=== PATIENT | male | born 1965 | race American Indian/Alaskan Native ===

== ENCOUNTER 2020-10-09 00:50 | Inpatient (IN) | payer MEDICARE, OTHER ==
--- NOTE | 2020-10-09 01:32 | EDM.PDOC ---
ED HPI GENERAL MEDICAL PROBLEM - General Chief Complaint: Respiratory Problem Stated Complaint: [facility] Time Seen by Provider: 10/09/20 00:59 Source of Information: Reports: Patient, EMS History Limitations: Reports: No Limitations - History of Present Illness INITIAL COMMENTS - FREE TEXT/NARRATIVE: This is a 55-year-old male. Onset of Covid type symptoms 3 days ago. Apparently on his indicated to him that she could not taste or smell anything and now as the day he began having increased coughing and shortness of breath. It is progressively gotten worse until this morning when he tried to get to the bathroom he had to get his to help him because he was so weak. He was also extremely short of breath. They called the ambulance and when they arrived his pulse ox on room air was 60%. They put him on a nonrebreather at 15 L and his pulse ox is in the mid 80s. He is obviously short of breath when I go into the room and he speaks in short sentences because they are interrupted by his breathing. He also has a persistent cough. He states that over the last few days has been running a low-grade fever he has been very weak he has had congestion mild runny nose and a mild sore throat headaches in the morning and myalgias but no nausea vomiting or diarrhea. History includes cardiac bypass surgery in 2006 it was a triple bypass. He is also a independent diabetic with peripheral vascular disease and peripheral neuropathy. He also has hypertension. About 2 weeks ago he was discovered to have some claudication and he went through surgery to clean out his arteries in his legs by Dr. Myers in [place] and then he had an amputation of his left great toe at that same time. He did get a slight infection in his legs after the surgery but that seems to have cleared up if I understand what he is telling me. He denies any history of congestive heart failure or fluid collecting in his lungs. Treatments LEAD DENTAL ASSISTANT: Reports: IV/IO, Oxygen - Related Data Allergies Allergy/AdvReac Type Severity Reaction Status Date / Time Sulfa (Sulfonamide Allergy Severe Shaking Verified 10/09/20 00:58 Antibiotics) Home Meds: Home Meds Aspirin [Aspirin EC] 325 mg PO DAILY 10/09/20 [History] Baclofen 10 mg PO TID 10/09/20 [History] Docusate Sodium 100 mg PO BID 10/09/20 [History] Gabapentin [Neurontin] 600 mg PO BEDTIME 10/09/20 [History] Gabapentin [Neurontin] 600 mg PO BID 10/09/20 [History] Ibuprofen 800 mg PO Q8H PRN 10/09/20 [History] Insulin Aspart [NovoLOG] 1 unit SQ WITHMEALSANDBED 10/09/20 [History] Insulin Detemir [Levemir] 30 unit SUBCUT BEDTIME 10/09/20 [History] Losartan [Cozaar] 100 mg PO DAILY 10/09/20 [History] Magnesium Oxide 400 mg PO DAILY 10/09/20 [History] Metoprolol Tartrate 50 mg PO BID 10/09/20 [History] amLODIPine [Norvasc] 5 mg PO DAILY 10/09/20 [History] atorvaSTATin [Lipitor] 80 mg PO BEDTIME 10/09/20 [History] rOPINIRole [Requip] 1 mg PO BEDTIME 10/09/20 [History] Past Medical History Cardiovascular History: Reports: High Cholesterol, Hypertension, [place] Genitourinary History: Reports: Diabetic Nephropathy Endocrine/Metabolic History: Reports: Diabetes, Type II Social & Family History - Tobacco Use Tobacco Use Status *Q: Former Tobacco User Used Tobacco, but Quit: Yes Month/Year Tobacco Last Used: 2004 - Recreational Drug Use Recreational Drug Use: No ED ROS GENERAL - Review of Systems Review Of Systems: See Below Constitutional: Reports: Fever, Chills, Weakness, Fatigue HEENT: Reports: Rhinitis, Throat Pain Respiratory: Reports: Shortness of Breath, Wheezing, Cough, Sputum Cardiovascular: Denies: Chest Pain Endocrine: Reports: No Symptoms GI/Abdominal: Denies: Abdominal Pain, Diarrhea, Nausea, Vomiting : Reports: No Symptoms Musculoskeletal: Reports: Other (Myalgias during these last 3 days) Skin: Reports: No Symptoms Neurological: Reports: No Symptoms Psychiatric: Reports: Anxiety Hematologic/Lymphatic: Reports: No Symptoms ED EXAM, GENERAL - Physical Exam Exam: See Below Exam Limited By: Other (Despite him being short of breath he is able to speak and give a decent history) General Appearance: Alert, WD/WN, Anxious, Moderate Distress Eye Exam: Bilateral Eye: Normal Inspection Ears: Normal External Exam, Normal Canal, Normal TMs Nose: Normal Inspection. No: Nasal Drainage Throat/Mouth: Normal Oropharynx, Normal Voice, No Airway Compromise, Other (His mucous membranes are very tacky and dry) Head: Normocephalic Neck: Supple Respiratory/Chest: Crackles, Accessory Muscle Use, Other (Listen to his lung blankenship the upper blankenship have Velcro sounds with expiration but the lower blankneship appear to have Velcro sounds with both inspiration and expiration and he has decreased breath sounds in the bases. He is tachypneic he does have a mild prolonged expiratory phase. His anterior chest has a bypass surgery scar.) Cardiovascular: Regular Rate, Rhythm, No Murmur GI/Abdominal: Soft, Other (All sounds are quiet.) Back Exam: Full Range of Motion Extremities: Normal Range of Motion, Pedal Edema, Other (His lower extremities especially the lower legs appear to have some early brawny skin changes though there is no significant edema. He does have 2 areas on his right lower extremity that have some mild weeping though the edema is only about 1+. On the left lower extremity he does not have any open wounds but his foot is wrapped due to the amputation of his left great toe. I did not remove the wrapping at this time because I see no drainage on the bandages.) Neurological: Alert, Oriented Psychiatric: Anxious Skin Exam: Warm, Dry #1 Interpretation EKG Date: 10/09/20 Time: 01:45 EKG Interpretation Comments: EKG shows a normal sinus rhythm rate of 93, there are no acute ST elevation or T wave changes, there is no acute ischemia noted. Course - Vital Signs Last Recorded V/S: Last Vital Signs Temp 98.1 F 10/09/20 00:54 Pulse 97 10/09/20 00:54 Resp 36 H 10/09/20 00:54 BP 149/68 H 10/09/20 00:54 Pulse Ox 79 L 10/09/20 00:54 - Orders/Labs/Meds Orders: Active Orders 24 hr Category Date Time Status EKG 12 Lead [EKG Documentation Completion] [RC] STAT Care 10/09/20 01:09 Active CXR [Chest 1V Frontal] [CR] Stat Exams 10/09/20 01:08 Taken cefTRIAXone [Rocephin] 2 gm Med 10/09/20 02:52 Ordered Sodium Chloride 0.9% [Normal Saline] 100 ml IV ONETIME Medication Orders Ceftriaxone Sodium 2 gm/ (Sodium Chloride) 100 mls @ 200 mls/hr IV ONETIME ONE Stop: 12/20/20 03:21 Labs: Laboratory Tests 10/09/20 10/09/20 10/09/20 Range/Units 01:15 01:15 01:29 WBC 9.21 H (4.23-9.07) K/mm3 RBC 4.22 L (4.63-6.08) M/mm3 Hgb 10.7 L (13.7-17.5) gm/dl Hct 32.2 L (40.1-51.0) % MCV 76.3 L (79.0-92.2) fl MCH 25.4 L (25.7-32.2) pg MCHC 33.2 (32.2-35.5) g/dl RDW Std Deviation 40.3 (35.1-43.9) fL Plt Count 120 L (163-337) K/mm3 MPV 11.7 (9.4-12.3) fl Neut % (Auto) 89.1 H (34.0-67.9) % Lymph % (Auto) 6.7 L (21.8-53.1) % [facility] % (Auto) 3.7 L (5.3-12.2) % Eos % (Auto) 0 L (0.8-7.0) Baso % (Auto) 0.1 (0.1-1.2) % Neut # (Auto) 8.20 H (1.78-5.38) K/mm3 Lymph # (Auto) 0.62 L (1.32-3.57) K/mm3 [facility] # (Auto) 0.34 (0.30-0.82) K/mm3 Eos # (Auto) 0.00 L (0.04-0.54) K/mm3 Baso # (Auto) 0.01 (0.01-0.08) K/mm3 Manual Slide Review Abnormal smear D-Dimer, Quantitative (0.19-0.50) mg/L Puncture Site Lt radial ABG pH 7.35 (7.35-7.45) ABG pCO2 23.8 L (35.0-45.0) mmHg ABG pO2 50.0 L (80.0-100.0) mmHg ABG HCO3 12.8 L (22.0-26.0) meq/L ABG O2 Saturation 80.5 L (96.0-97.0) % ABG Base Excess -11.1 L (-2-2.0) Kali Test Positive O2 Delivery Device Nrb Oxygen Flow Rate 15.0 Sodium (136-145) mEq/L Potassium (3.5-5.1) mEq/L Chloride (98-107) mEq/L Carbon Dioxide (21-32) mEq/L Anion Gap (5-15) BUN (7-18) mg/dL Creatinine (0.7-1.3) mg/dL Est Cr Clr Drug Dosing mL/min Estimated GFR (MDRD) (>60) mL/min BUN/Creatinine Ratio (14-18) Glucose (74-106) mg/dL Lactic Acid (0.4-2.0) mmol/L Calcium (8.5-10.1) mg/dL Magnesium (1.8-2.4) mg/dl Ferritin (26-388) ng/ml Total Bilirubin (0.2-1.0) mg/dL AST (15-37) U/L ALT (16-63) U/L Alkaline Phosphatase (46-116) U/L Lactate Dehydrogenase (85-227) U/L Troponin I (0.00-0.056) ng/mL C-Reactive Protein (<1.0) mg/dL NT-Pro-B Natriuret Pep (0-125) pg/mL Total Protein (6.4-8.2) g/dl Albumin (3.4-5.0) g/dl Globulin gm/dL Albumin/Globulin Ratio (1-2) SARS-CoV-2 RNA (PERRI) Positive H (NEGATIVE) 10/09/20 10/09/20 10/09/20 Range/Units 01:29 01:29 01:29 WBC (4.23-9.07) K/mm3 RBC (4.63-6.08) M/mm3 Hgb (13.7-17.5) gm/dl Hct (40.1-51.0) % MCV (79.0-92.2) fl MCH (25.7-32.2) pg MCHC (32.2-35.5) g/dl RDW Std Deviation (35.1-43.9) fL Plt Count (163-337) K/mm3 MPV (9.4-12.3) fl Neut % (Auto) (34.0-67.9) % Lymph % (Auto) (21.8-53.1) % [facility] % (Auto) (5.3-12.2) % Eos % (Auto) (0.8-7.0) Baso % (Auto) (0.1-1.2) % Neut # (Auto) (1.78-5.38) K/mm3 Lymph # (Auto) (1.32-3.57) K/mm3 [facility] # (Auto) (0.30-0.82) K/mm3 Eos # (Auto) (0.04-0.54) K/mm3 Baso # (Auto) (0.01-0.08) K/mm3 Manual Slide Review D-Dimer, Quantitative (0.19-0.50) mg/L Puncture Site ABG pH (7.35-7.45) ABG pCO2 (35.0-45.0) mmHg ABG pO2 (80.0-100.0) mmHg ABG HCO3 (22.0-26.0) meq/L ABG O2 Saturation (96.0-97.0) % ABG Base Excess (-2-2.0) Kali Test O2 Delivery Device Oxygen Flow Rate Sodium 129 L (136-145) mEq/L Potassium 3.8 (3.5-5.1) mEq/L Chloride 97 L (98-107) mEq/L Carbon Dioxide 15 L (21-32) mEq/L Anion Gap 20.8 H (5-15) BUN 37 H (7-18) mg/dL Creatinine 2.3 H (0.7-1.3) mg/dL Est Cr Clr Drug Dosing 38.35 mL/min Estimated GFR (MDRD) 30 (>60) mL/min BUN/Creatinine Ratio 16.1 (14-18) Glucose 159 H (74-106) mg/dL Lactic Acid (0.4-2.0) mmol/L Calcium 7.9 L (8.5-10.1) mg/dL Magnesium 1.6 L (1.8-2.4) mg/dl Ferritin 912 H (26-388) ng/ml Total Bilirubin 0.4 (0.2-1.0) mg/dL AST 42 H (15-37) U/L ALT 59 (16-63) U/L Alkaline Phosphatase 95 (46-116) U/L Lactate Dehydrogenase 495 H (85-227) U/L Troponin I 0.035 (0.00-0.056) ng/mL C-Reactive Protein 19.1 H* (<1.0) mg/dL NT-Pro-B Natriuret Pep 1123 H (0-125) pg/mL Total Protein 7.7 (6.4-8.2) g/dl Albumin 2.4 L (3.4-5.0) g/dl Globulin 5.3 gm/dL Albumin/Globulin Ratio 0.5 L (1-2) SARS-CoV-2 RNA (PERRI) (NEGATIVE) 10/09/20 10/09/20 Range/Units 01:29 01:29 WBC (4.23-9.07) K/mm3 RBC (4.63-6.08) M/mm3 Hgb (13.7-17.5) gm/dl Hct (40.1-51.0) % MCV (79.0-92.2) fl MCH (25.7-32.2) pg MCHC (32.2-35.5) g/dl RDW Std Deviation (35.1-43.9) fL Plt Count (163-337) K/mm3 MPV (9.4-12.3) fl Neut % (Auto) (34.0-67.9) % Lymph % (Auto) (21.8-53.1) % [facility] % (Auto) (5.3-12.2) % Eos % (Auto) (0.8-7.0) Baso % (Auto) (0.1-1.2) % Neut # (Auto) (1.78-5.38) K/mm3 Lymph # (Auto) (1.32-3.57) K/mm3 [facility] # (Auto) (0.30-0.82) K/mm3 Eos # (Auto) (0.04-0.54) K/mm3 Baso # (Auto) (0.01-0.08) K/mm3 Manual Slide Review D-Dimer, Quantitative 1.85 H (0.19-0.50) mg/L Puncture Site ABG pH (7.35-7.45) ABG pCO2 (35.0-45.0) mmHg ABG pO2 (80.0-100.0) mmHg ABG HCO3 (22.0-26.0) meq/L ABG O2 Saturation (96.0-97.0) % ABG Base Excess (-2-2.0) Kali Test O2 Delivery Device Oxygen Flow Rate Sodium (136-145) mEq/L Potassium (3.5-5.1) mEq/L Chloride (98-107) mEq/L Carbon Dioxide (21-32) mEq/L Anion Gap (5-15) BUN (7-18) mg/dL Creatinine (0.7-1.3) mg/dL Est Cr Clr Drug Dosing mL/min Estimated GFR (MDRD) (>60) mL/min BUN/Creatinine Ratio (14-18) Glucose (74-106) mg/dL Lactic Acid 2.2 H* (0.4-2.0) mmol/L Calcium (8.5-10.1) mg/dL Magnesium (1.8-2.4) mg/dl Ferritin (26-388) ng/ml Total Bilirubin (0.2-1.0) mg/dL AST (15-37) U/L ALT (16-63) U/L Alkaline Phosphatase (46-116) U/L Lactate Dehydrogenase (85-227) U/L Troponin I (0.00-0.056) ng/mL C-Reactive Protein (<1.0) mg/dL NT-Pro-B Natriuret Pep (0-125) pg/mL Total Protein (6.4-8.2) g/dl Albumin (3.4-5.0) g/dl Globulin gm/dL Albumin/Globulin Ratio (1-2) SARS-CoV-2 RNA (PERRI) (NEGATIVE) Meds: Medications Generic Name Dose Route Start Last Admin Trade Name Freq PRN Reason Stop Dose Admin Ceftriaxone Sodium 2 gm/ 100 mls @ 200 mls/hr 10/09/20 02:52 Sodium Chloride IV 10/09/20 03:21 ONETIME ONE Discontinued Medications Generic Name Dose Route Start Last Admin Trade Name Freq PRN Reason Stop Dose Admin Dexamethasone 6 mg 10/09/20 02:52 Decadron IVPUSH 10/09/20 02:53 ONETIME ONE - Radiology Interpretation Free Text/Narrative:: Chest x-ray shows marked infiltrates in both lung blankenship fluffy appearance suggesting Covid lung - Re-Assessments/Exams Free Text/Narrative Re-Assessment/Exam: 10/09/20 02:56 The patient regarding his test results and his Covid positive status and his lung status. He is going to be admitted to the ICU for further evaluation. I did speak to Dr. Knowles regarding the patient and he agrees to accept the patient for admission for further evaluation and treatment. Departure - Departure Time of Disposition: 02:57 Disposition: Admitted As Inpatient 68 Condition: Serious Clinical Impression: Lab test positive for detection of COVID-19 virus, Pneumonia due to COVID-19 virus, Hypoxemia, Microcytic hypochromic anemia, Renal insufficiency, Dehydration, Hyponatremia, Thrombocytopenia, Hypocalcemia, Hypomagnesemia, Elevated C-reactive protein, Insulin dependent diabetes mellitus, Peripheral vascular disease due to secondary diabetes Coronary artery disease Qualifiers: Coronary Disease-Associated Artery/Lesion type: unspecified vessel or lesion type [place] vs. transplanted heart: [place] heart Associated angina: angina presence unspecified Qualified Code(s): I25.10 - Atherosclerotic heart disease of [place] coronary artery without angina pectoris - Discharge Information Forms: ED Department Discharge Sepsis Event Note (ED) - Evaluation Sepsis Screening Result: No Definite Risk - Focused Exam Vital Signs: Vital Signs Temp Pulse Resp BP Pulse Ox 10/09/20 00:54 98.1 F 97 36 H 149/68 H 79 L ED Communication - ED Communication Date/Time Date: 10/09/20 Time Called: 02:57 - Discussed Case With (1) Discussed Case With (1): Admitting Provider Person/s Notified (1): Sofia Knowles (He accepts the patient for admission for further evaluation and treatment) - My Orders Last 24 Hours: My Active Orders 10/09/20 01:08 CXR [Chest 1V Frontal] [CR] Stat 10/09/20 01:09 EKG 12 Lead [EKG Documentation Completion] [RC] STAT 10/09/20 02:52 cefTRIAXone [Rocephin] 2 gm Sodium Chloride 0.9% [Normal Saline] 100 ml IV ONETIME - Assessment/Plan Last 24 Hours: My Active Orders 10/09/20 01:08 CXR [Chest 1V Frontal] [CR] Stat 10/09/20 01:09 EKG 12 Lead [EKG Documentation Completion] [RC] STAT 10/09/20 02:52 cefTRIAXone [Rocephin] 2 gm Sodium Chloride 0.9% [Normal Saline] 100 ml IV ONETIME
[2020-10-09] MEDS ORDERED: cefTRIAXone 2 GM in Sodium Chloride 0.9% 100 ML IV ONE (02:52)
[2020-10-09] MEDS ORDERED: Dexamethasone 4 MG/ML SDV IVPUSH ONE (02:52)
[2020-10-09] MEDS ORDERED: REMDESIVIR 200 MG in Sodium Chloride 0.9% 250 ML IV ONE (05:14)
[2020-10-09] MEDS: Azithromycin 500 MG in Sodium Chloride 0.9% 250 ML IV SCH (05:45)
--- NOTE | 2020-10-09 07:18 | PCM.HP.2 ---
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 He reports increased shortness of breath associated with wet cough and loss of sense smell and taste. He also had signs and symptoms of URI. Yesterday morning he progressively gotten worse and was so weak. He was found significantly hypoxic on RA when EMS arrived at the scene. He was put on 15L NRM but was still sating in the mid 80s. In ED, he had difficulty completing his sentences and had persistent cough. His initial work up in ED shows a CBC remarkable for WBC of 9.21, Hgb of 10.7, Hct of 32.2, MCV of 76.3, MCH of 25.4, Platelet of 120, Neutrophils of 89.1%, Lymphocytes of 6.7%, and Monocytes of 3.7%. His d-dimer is 1.85. His initial ABG shows a pH of 7.35, pCO2 of 23.8, pO2 of 50, HCO3 of 12.8 and O2 sat of 80% on 15L NRM. His chemistry is significant for Na of 129, Cl of 97, CO2 of 15, AG of 20.8, BUN of 37, Cr of 2.3, BS of 159, LA of 2.2, Ca of 7.9, Mg of 1.6, AST of 42, LDH of 495, CRP of 19, ProBNP of 1123, Albumin of 2.4, Vit D of 17.1, and FT4 of 1.53. His COVID-19 rapid test is positive. His chest x-ray report read as diffuse increased density on both side of the chest-suspicious for COVID-19 pneumonia. Patient received initial treatment in ED before he came to the unit for further management. Generalized Pain Score (Numeric/FACES): 5 - Related Data Allergies/Adverse Reactions: Allergies Allergy/AdvReac Type Severity Reaction Status Date / Time Sulfa (Sulfonamide AdvReac Mild Shaking Verified 10/10/20 10:51 Antibiotics) Home Medications: Home Meds Albuterol Sulfate [Proair Hfa] 2 puff INH BID PRN 10/09/20 [History] Aspirin [Aspirin EC] 325 mg PO DAILY 10/09/20 [History] Baclofen 10 mg PO TID 10/09/20 [History] Docusate Sodium 100 mg PO BID 10/09/20 [History] Folic Acid/Multivit-Min/Lutein [Multi-Vitamin Gummies] 2 each PO DAILY 10/09/20 [History] Gabapentin [Neurontin] 1,200 mg PO BEDTIME 10/09/20 [History] Gabapentin [Neurontin] 600 mg PO BID 10/09/20 [History] Ibuprofen 800 mg PO Q8H PRN 10/09/20 [History] Insulin Aspart [NovoLOG] 1 unit SQ WITHMEALSANDBED 10/09/20 [History] Insulin Detemir [Levemir] 38 unit SUBCUT BEDTIME 10/09/20 [History] Losartan [Cozaar] 100 mg PO DAILY 10/09/20 [History] Magnesium Oxide 400 mg PO DAILY 10/09/20 [History] Metoprolol Tartrate 50 mg PO BID 10/09/20 [History] amLODIPine [Norvasc] 5 mg PO DAILY 10/09/20 [History] atorvaSTATin [Lipitor] 80 mg PO BEDTIME 10/09/20 [History] rOPINIRole [Requip] 1 mg PO BEDTIME 10/09/20 [History] Past Medical History HEENT History: Reports: Impaired Vision Cardiovascular History: Reports: Bypass, High Cholesterol, Hypertension, [place] Respiratory History: Reports: SOB Genitourinary History: Reports: Diabetic Nephropathy Musculoskeletal History: Reports: Amputation Endocrine/Metabolic History: Reports: Diabetes, Type II - Past Surgical History Cardiovascular Surgical History: Reports: Coronary Artery Bypass Musculoskeletal Surgical History: Reports: Amputation Social & Family History - Tobacco Use Tobacco Use Status *Q: Former Tobacco User Years of Tobacco use: 13 Packs/Tins Daily: 2.5 Used Tobacco, but Quit: Yes Month/Year Tobacco Last Used: 15 yrs ago Second Hand Smoke Exposure: No - Caffeine Use Caffeine Use: Reports: Coffee, Soda - Recreational Drug Use Recreational Drug Use: No H&P Review of Systems - Review of Systems: Review Of Systems: Unable To Obtain Reason Not Obtained: Not able to obtain he is respiratory distress Exam - Exam Exam: See Below - Vital Signs Vital Signs: Last Vital Signs Temp 37.3 C 10/09/20 03:56 Pulse 97 10/09/20 00:54 Resp 37 H 10/09/20 03:56 BP 141/66 H 10/09/20 03:56 Pulse Ox 92 L 10/09/20 06:18 Weight: 102.739 kg - Exam Quality Assessment: Supplemental Oxygen General: Moderate Distress, Other (Currently on high flow) HEENT: Conjunctiva Clear, Nares Patent, Normal Nasal Septum, Pupils Equal, Pupils Reactive Neck: Supple, Trachea Midline Lungs: Crackles, Other (tachypneic). No: Normal Respiratory Effort Cardiovascular: Tachycardia GI/Abdominal Exam: Normal Bowel Sounds, Soft, Non-Tender, No Organomegaly, No Distention, No Abnormal Bruit, No Mass, Other (Obese) (Male) Exam: Other (urinary catheter) Rectal (Males) Exam: Deferred Back Exam: Normal Inspection Extremities: Non-Tender, Normal Capillary Refill. No: Normal Inspection Skin: Warm, Dry, Wound Skin Alteration Location (Drawings Not To Scale): 1 - skin discoloration 2 - diabetic foot ulcer-appears to be healing 3 - great toe amputated. foot is dressed and wrapped Neuro Extensive - Mental Status: Normal Mood/Affect Neuro Extensive - Motor, Sensory, Reflexes: CN II-XII Intact Psychiatric: Anxious Physical Exam Comments:: Physical exam is limited but acute respiratory distress - Patient Data Lab Results Last 24 hrs: Laboratory Results - last 24 hr 10/09/20 10/09/20 10/09/20 Range/Units 01:15 01:15 01:29 WBC 9.21 H (4.23-9.07) K/mm3 RBC 4.22 L (4.63-6.08) M/mm3 Hgb 10.7 L (13.7-17.5) gm/dl Hct 32.2 L (40.1-51.0) % MCV 76.3 L (79.0-92.2) fl MCH 25.4 L (25.7-32.2) pg MCHC 33.2 (32.2-35.5) g/dl RDW Std Deviation 40.3 (35.1-43.9) fL Plt Count 120 L (163-337) K/mm3 MPV 11.7 (9.4-12.3) fl Neut % (Auto) 89.1 H (34.0-67.9) % Lymph % (Auto) 6.7 L (21.8-53.1) % Hamlin % (Auto) 3.7 L (5.3-12.2) % Eos % (Auto) 0 L (0.8-7.0) Baso % (Auto) 0.1 (0.1-1.2) % Neut # (Auto) 8.20 H (1.78-5.38) K/mm3 Lymph # (Auto) 0.62 L (1.32-3.57) K/mm3 Hamlin # (Auto) 0.34 (0.30-0.82) K/mm3 Eos # (Auto) 0.00 L (0.04-0.54) K/mm3 Baso # (Auto) 0.01 (0.01-0.08) K/mm3 Manual Slide Review Abnormal smear D-Dimer, Quantitative (0.19-0.50) mg/L Puncture Site Lt radial ABG pH 7.35 (7.35-7.45) ABG pCO2 23.8 L (35.0-45.0) mmHg ABG pO2 50.0 L (80.0-100.0) mmHg ABG HCO3 12.8 L (22.0-26.0) meq/L ABG O2 Saturation 80.5 L (96.0-97.0) % ABG Base Excess -11.1 L (-2-2.0) Kali Test Positive O2 Delivery Device Nrb Oxygen Flow Rate 15.0 Sodium (136-145) mEq/L Potassium (3.5-5.1) mEq/L Chloride (98-107) mEq/L Carbon Dioxide (21-32) mEq/L Anion Gap (5-15) BUN (7-18) mg/dL Creatinine (0.7-1.3) mg/dL Est Cr Clr Drug Dosing mL/min Estimated GFR (MDRD) (>60) mL/min BUN/Creatinine Ratio (14-18) Glucose (74-106) mg/dL Lactic Acid (0.4-2.0) mmol/L Calcium (8.5-10.1) mg/dL Magnesium (1.8-2.4) mg/dl Ferritin (26-388) ng/ml Total Bilirubin (0.2-1.0) mg/dL Direct Bilirubin (0.0-0.2) mg/dl Indirect Bilirubin AST (15-37) U/L ALT (16-63) U/L Alkaline Phosphatase (46-116) U/L Lactate Dehydrogenase (85-227) U/L Troponin I (0.00-0.056) ng/mL C-Reactive Protein (<1.0) mg/dL NT-Pro-B Natriuret Pep (0-125) pg/mL Total Protein (6.4-8.2) g/dl Albumin (3.4-5.0) g/dl Globulin gm/dL Albumin/Globulin Ratio (1-2) SARS-CoV-2 RNA (PERRI) Positive H (NEGATIVE) 10/09/20 10/09/20 10/09/20 Range/Units 01:29 01:29 01:29 WBC (4.23-9.07) K/mm3 RBC (4.63-6.08) M/mm3 Hgb (13.7-17.5) gm/dl Hct (40.1-51.0) % MCV (79.0-92.2) fl MCH (25.7-32.2) pg MCHC (32.2-35.5) g/dl RDW Std Deviation (35.1-43.9) fL Plt Count (163-337) K/mm3 MPV (9.4-12.3) fl Neut % (Auto) (34.0-67.9) % Lymph % (Auto) (21.8-53.1) % Hamlin % (Auto) (5.3-12.2) % Eos % (Auto) (0.8-7.0) Baso % (Auto) (0.1-1.2) % Neut # (Auto) (1.78-5.38) K/mm3 Lymph # (Auto) (1.32-3.57) K/mm3 Hamlin # (Auto) (0.30-0.82) K/mm3 Eos # (Auto) (0.04-0.54) K/mm3 Baso # (Auto) (0.01-0.08) K/mm3 Manual Slide Review D-Dimer, Quantitative (0.19-0.50) mg/L Puncture Site ABG pH (7.35-7.45) ABG pCO2 (35.0-45.0) mmHg ABG pO2 (80.0-100.0) mmHg ABG HCO3 (22.0-26.0) meq/L ABG O2 Saturation (96.0-97.0) % ABG Base Excess (-2-2.0) Kali Test O2 Delivery Device Oxygen Flow Rate Sodium 129 L (136-145) mEq/L Potassium 3.8 (3.5-5.1) mEq/L Chloride 97 L (98-107) mEq/L Carbon Dioxide 15 L (21-32) mEq/L Anion Gap 20.8 H (5-15) BUN 37 H (7-18) mg/dL Creatinine 2.3 H (0.7-1.3) mg/dL Est Cr Clr Drug Dosing 38.35 mL/min Estimated GFR (MDRD) 30 (>60) mL/min BUN/Creatinine Ratio 16.1 (14-18) Glucose 159 H (74-106) mg/dL Lactic Acid (0.4-2.0) mmol/L Calcium 7.9 L (8.5-10.1) mg/dL Magnesium 1.6 L (1.8-2.4) mg/dl Ferritin 912 H (26-388) ng/ml Total Bilirubin 0.4 (0.2-1.0) mg/dL Direct Bilirubin (0.0-0.2) mg/dl Indirect Bilirubin AST 42 H (15-37) U/L ALT 59 (16-63) U/L Alkaline Phosphatase 95 (46-116) U/L Lactate Dehydrogenase 495 H (85-227) U/L Troponin I 0.035 (0.00-0.056) ng/mL C-Reactive Protein 19.1 H* (<1.0) mg/dL NT-Pro-B Natriuret Pep 1123 H (0-125) pg/mL Total Protein 7.7 (6.4-8.2) g/dl Albumin 2.4 L (3.4-5.0) g/dl Globulin 5.3 gm/dL Albumin/Globulin Ratio 0.5 L (1-2) SARS-CoV-2 RNA (PERRI) (NEGATIVE) 10/09/20 10/09/20 10/09/20 Range/Units 01:29 01:29 05:46 WBC (4.23-9.07) K/mm3 RBC (4.63-6.08) M/mm3 Hgb (13.7-17.5) gm/dl Hct (40.1-51.0) % MCV (79.0-92.2) fl MCH (25.7-32.2) pg MCHC (32.2-35.5) g/dl RDW Std Deviation (35.1-43.9) fL Plt Count (163-337) K/mm3 MPV (9.4-12.3) fl Neut % (Auto) (34.0-67.9) % Lymph % (Auto) (21.8-53.1) % Hamlin % (Auto) (5.3-12.2) % Eos % (Auto) (0.8-7.0) Baso % (Auto) (0.1-1.2) % Neut # (Auto) (1.78-5.38) K/mm3 Lymph # (Auto) (1.32-3.57) K/mm3 Hamlin # (Auto) (0.30-0.82) K/mm3 Eos # (Auto) (0.04-0.54) K/mm3 Baso # (Auto) (0.01-0.08) K/mm3 Manual Slide Review D-Dimer, Quantitative 1.85 H (0.19-0.50) mg/L Puncture Site ABG pH (7.35-7.45) ABG pCO2 (35.0-45.0) mmHg ABG pO2 (80.0-100.0) mmHg ABG HCO3 (22.0-26.0) meq/L ABG O2 Saturation (96.0-97.0) % ABG Base Excess (-2-2.0) Kali Test O2 Delivery Device Oxygen Flow Rate Sodium (136-145) mEq/L Potassium (3.5-5.1) mEq/L Chloride (98-107) mEq/L Carbon Dioxide (21-32) mEq/L Anion Gap (5-15) BUN (7-18) mg/dL Creatinine (0.7-1.3) mg/dL Est Cr Clr Drug Dosing mL/min Estimated GFR (MDRD) (>60) mL/min BUN/Creatinine Ratio (14-18) Glucose (74-106) mg/dL Lactic Acid 2.2 H* (0.4-2.0) mmol/L Calcium (8.5-10.1) mg/dL Magnesium (1.8-2.4) mg/dl Ferritin (26-388) ng/ml Total Bilirubin 0.4 (0.2-1.0) mg/dL Direct Bilirubin 0.10 (0.0-0.2) mg/dl Indirect Bilirubin 0.30 AST 42 H (15-37) U/L ALT 53 (16-63) U/L Alkaline Phosphatase 98 (46-116) U/L Lactate Dehydrogenase (85-227) U/L Troponin I (0.00-0.056) ng/mL C-Reactive Protein (<1.0) mg/dL NT-Pro-B Natriuret Pep (0-125) pg/mL Total Protein 7.7 (6.4-8.2) g/dl Albumin 2.4 L (3.4-5.0) g/dl Globulin 5.3 gm/dL Albumin/Globulin Ratio 0.5 L (1-2) SARS-CoV-2 RNA (PERRI) (NEGATIVE) Result Diagrams: 10/10/20 19:10 10/10/20 19:10 Sepsis Event Note - Evaluation Sepsis Screening Result: Severe Sepsis Risk - Focused Exam Vital Signs: Vital Signs Temp Pulse Resp BP BP Pulse Ox Pulse Ox 10/09/20 06:18 92 L 10/09/20 04:35 92 L 10/09/20 03:56 37.3 C 37 H 141/66 H 76 L 10/09/20 00:54 36.7 C 97 36 H 149/68 H 79 L Problem List Initiated/Reviewed/Updated: Yes Orders Last 24hrs: Active Orders 24 hr Category Date Time Status Admission Status [Patient Status] [ADT] Routine ADT 12/20/20 03:12 Active Up With Assistance [RC] ASDIRECTED Care 10/09/20 05:12 Active Clear Liquid Diet [DIET] Diet 10/09/20 Breakfast Active CXR [Chest 1V Frontal] [CR] Stat Exams 10/09/20 01:08 Taken HEPATIC FUNCTION PANEL,HFP [CHEM] DAILY Lab 10/10/20 05:15 Ordered HEPATIC FUNCTION PANEL,HFP [CHEM] DAILY Lab 10/11/20 05:15 Ordered HEPATIC FUNCTION PANEL,HFP [CHEM] DAILY Lab 10/12/20 05:15 Ordered HEPATIC FUNCTION PANEL,HFP [CHEM] DAILY Lab 10/13/20 05:15 Ordered HEPATIC FUNCTION PANEL,HFP [CHEM] DAILY Lab 10/14/20 05:15 Ordered Azithromycin [Zithromax] 500 mg Med 10/09/20 05:15 Active Sodium Chloride 0.9% [Normal Saline (AdvBag)] 250 ml IV Q24H Code Status [Resuscitation Status] Routine Resus Stat 10/09/20 05:10 Ordered Medication Orders Azithromycin 500 mg/ Sodium (Chloride) 250 mls @ 250 mls/hr IV Q24H CEASAR Last Admin: 10/09/20 05:45 Dose: 250 mls/hr Documented by: RAY Assessment/Plan Comment:: This is a 55 yo male with past medical hx/o HTN, HLD, Hx/o [place], CAD S/p CABG in 2006, DM2, Diabetic Nephropathy, PAD, Back Pain, Recent Amputation of his Left Great Toe, Diabetic foot ulcer of the left foot and Obesity who presented to ED midnight with 3 day hx/o COVID-19 symptoms. Assessment: Acute: COVID-19 Infection Viral Pneumonitis/Atypical Pneumonia ARDS Severe Hypoxia on 15L NRM Acute Hypoxic Respiratory Failure, now on BIPAP Leukocytosis with WBC of 9.21 and Neutrophils of 89.1% Microcytic Normochromic Anemia with Hgb of 10.7 grams Hypovolemic Hyponatremia with Na of 129 Hypochloremia with Cl of 97 Increased AG Metabolic Acidosis Acute Kidney Injury, no previous level for comparison Hyperglycemia with DM2 Lactic Acidosis Hypocalcemia with non-corrected Ca level of 2.2 Hypomagnesemia with Mg of 1.6 Elevated Ferritin of 912 Mildly Elevated AST of 42 Elevated LDH of 495 Elevated CRP of 19.1 Elevated ProBNP of 1123 Hypoalbuminemia with Albumin of 2.4 Vitamin D deficiency with Vit D level of 17.1 Elevated D-Dimer Hypertension Tachypnea and Sinus Tachycardia Class I Obese Chronic: HTN, HLD, Hx/o [place], CAD S/p CABG in 2006, DM2, Diabetic Nephropathy, PAD, Back Pain, Recent Amputation of his Left Great Toe, Diabetic foot ulcer of the left foot and Obesity Plan: Patient admitted overnight to the unit for covid-19 treatment. IV antibiotic with rocephin and azithromycin to cover for atypical pneumonia. 5 day course of Veklury. Dexamethasone 10 mg IVP Q12H. Lasix 20 mg IVP x1 now. Lovenox 40 mg subQ BID due to elevated D-dimer. Continue pain regimen. Accu-check TIADAC with ISS and home dose LA insulin. Hold some home medications except for pain regimen. Proning protocol. Haldol 5 mg q8H PRN for restlessness and anxiety. Avoid Benzo due to respiratory depression. DVT prophylaxis: Lovenox subQ BID. GI prophylaxis: H2B. Zin oral supplement. Vit D supplement. PT/OT when appropriate. Wound care consult. Serial x-ray and ABGs as indicated. Offered intubation, patient refused. High flow to non-invasive pos pressure ventilation. Prognosis is guarded. Critical care time spent: > 45 mins.
[2020-10-09] MEDS ORDERED: Ibuprofen 600 MG Tab PO PRN (07:38)
[2020-10-09] MEDS ORDERED: Ondansetron 4 MG/2 ML SDV IV PRN (07:38)
[2020-10-09] MEDS ORDERED: Polyethylene Glycol 3350 Powder 17 GM Packet PO PRN (07:38)
[2020-10-09] MEDS ORDERED: Acetaminophen 325 MG Tab PO PRN (07:38)
[2020-10-09] MEDS ORDERED: Acetaminophen/HYDROcodone 325-5 MG Tab PO PRN (07:38)
[2020-10-09] MEDS ORDERED: Acetaminophen 650 MG Supp RECTAL PRN (07:38)
[2020-10-09] MEDS ORDERED: Promethazine 12.5 MG in Sodium Chloride 0.9% 50 ML IV PRN (07:38)
[2020-10-09] MEDS ORDERED: Haloperidol Lactate 5 MG/ML SDV IVPUSH ONE ×2 (07:42→10:35)
[2020-10-09] MEDS ORDERED: Haloperidol Lactate 5 MG/ML SDV IVPUSH PRN ×2 (07:46→10:35)
[2020-10-09] MEDS ORDERED: Furosemide 20 MG/2 ML VIAL IVPUSH ONE ×4 (07:52→21:00)
[2020-10-09] MEDS ORDERED: Albuterol/Ipratropium 3.0-0.5 MG/3 ML Neb Soln NEB PRN (07:52)
[2020-10-09] MEDS: Enoxaparin 40 MG/0.4 ML Syringe SUBCUT SCH ×2 (08:29→20:53)
[2020-10-09] MEDS: Zinc Sulfate 220 MG Cap PO SCH (08:30)
--- NOTE | 2020-10-09 08:50 | CR ---
Chest: Portable view of the chest was obtained. Comparison: No previous chest imaging. Diffuse increased density within both sides of the chest are seen. Heart size and mediastinum are within normal limits for portable technique. Previous sternotomy is noted. Prior cervical surgery is noted. Impression: 1. Diffuse increased density on both sides of the chest. Findings are suspicious for COVID pneumonia. Diagnostic code #5
[2020-10-09 09:42] LABS: VITAMIN D,25-HYDROXY 17.1 ng/ml (30.0-100.0)
[2020-10-09] MEDS: hydrALAZINE 20 MG/ML SDV IVPUSH PRN ×2 (10:30→20:52)
[2020-10-09] MEDS ORDERED: oxyCODONE ER 20 MG TAB.ER PO PRN (10:52)
[2020-10-09] MEDS: HYDROmorphone 1 MG/ML Syringe IVPUSH PRN ×4 (10:55→23:38)
[2020-10-09] MEDS ORDERED: Lidocaine 4% 1 each Patch TOP SCH (11:00)
[2020-10-09] MEDS: Gabapentin 600 MG Tab PO SCH (12:07)
[2020-10-09] MEDS: Baclofen 10 MG Tab PO SCH ×2 (13:59→20:59)
[2020-10-09] MEDS ORDERED: Insulin Glarg,Human.Rec.Analog 100 Unit/ML SUBCUT SCH (16:00)
[2020-10-09] MEDS: Insulin Glarg,Human.Rec.Analog 100 Unit/ML SUBCUT SCH (17:01)
[2020-10-09] MEDS: Insulin Lispro 100 Units/ML 3 ML Vial SUBCUT PRN (17:08)
[2020-10-09] MEDS: Famotidine 20 MG/2 ML SDV IVPUSH SCH (20:54)
[2020-10-09] MEDS: Dexamethasone 10 MG/ML SDV IVPUSH SCH (20:56)
[2020-10-09] MEDS ORDERED: Gabapentin 600 MG Tab PO SCH (21:00)
[2020-10-09] MEDS ORDERED: Famotidine 20 MG/2 ML SDV IVPUSH SCH (21:00)
[2020-10-09] MEDS ORDERED: rOPINIRole 1 MG Tab PO SCH (21:00)
[2020-10-09] MEDS ORDERED: [UNRECOGNIZED DRUG - REMARK] TRDERM SCH (23:00)
[2020-10-09] MEDS ORDERED: Sodium Chloride 0.9% 1,000 ML IV SCH (23:45)
[2020-10-10] MEDS: Insulin Lispro 100 Units/ML 3 ML Vial SUBCUT PRN ×2 (00:47→06:46)
[2020-10-10] MEDS: Azithromycin 500 MG in Sodium Chloride 0.9% 250 ML IV SCH (04:31)
[2020-10-10] MEDS: hydrALAZINE 20 MG/ML SDV IVPUSH PRN ×2 (04:38→13:02)
[2020-10-10] MEDS: HYDROmorphone 1 MG/ML Syringe IVPUSH PRN (04:45)
[2020-10-10] MEDS: Insulin Glarg,Human.Rec.Analog 100 Unit/ML SUBCUT SCH (06:44)
[2020-10-10] MEDS: Gabapentin 600 MG Tab PO SCH ×2 (06:44→13:05)
--- NOTE | 2020-10-10 06:51 | PCM.PN ---
- General Info Date of Service: 10/10/20 Admission Dx/Problem (Free Text): Admission Diagnosis/Problem Admission Diagnosis/Problem Pneumonia Subjective Update: No significant overnight or acute issues. He has been in proning position pretty much the whole time. RR is in the teens; 40s-50s yesterday. He is awake and comfortable laying on his stomach. His WBC spike up to 13.62 from 9.21. His CRP is slightly up at 24.9. He is afebrile on BIPAP with 100 FIO2 sating at upper 80s to low 90s. Functional Status: Reports: Pain Controlled, Urinating. Denies: Tolerating Diet, Ambulating, New Symptoms - Review of Systems General: Denies: Fever Pulmonary: Reports: Shortness of Breath Cardiovascular: Denies: Chest Pain Gastrointestinal: Denies: Abdominal Pain, Nausea, Vomiting Musculoskeletal: Denies: Joint Pain Skin: Denies: Rash Neurological: Denies: Confusion Psychiatric: Denies: Depression, Anxiety - Patient Data Vitals - Most Recent: Last Vital Signs Temp 36.5 C 10/10/20 04:00 Pulse 85 10/09/20 16:00 Resp 13 10/10/20 06:18 BP 118/51 L 10/10/20 06:18 Pulse Ox 90 L 10/10/20 06:18 Weight - Most Recent: 105.233 kg I&O - Last 24 Hours: Intake & Output 10/09/20 10/09/20 10/10/20 14:59 22:59 06:59 Intake Total 600 681 Output Total 2250 525 575 Balance -2250 75 106 Lab Results Last 24 Hours: Laboratory Results - last 24 hr 10/09/20 10/09/20 10/09/20 Range/Units 01:29 07:28 08:28 WBC (4.23-9.07) K/mm3 RBC (4.63-6.08) M/mm3 Hgb (13.7-17.5) gm/dl Hct (40.1-51.0) % MCV (79.0-92.2) fl MCH (25.7-32.2) pg MCHC (32.2-35.5) g/dl RDW Std Deviation (35.1-43.9) fL Plt Count (163-337) K/mm3 MPV (9.4-12.3) fl Neut % (Auto) (34.0-67.9) % Lymph % (Auto) (21.8-53.1) % [place] % (Auto) (5.3-12.2) % Eos % (Auto) (0.8-7.0) Baso % (Auto) (0.1-1.2) % Neut # (Auto) (1.78-5.38) K/mm3 Lymph # (Auto) (1.32-3.57) K/mm3 [place] # (Auto) (0.30-0.82) K/mm3 Eos # (Auto) (0.04-0.54) K/mm3 Baso # (Auto) (0.01-0.08) K/mm3 D-Dimer, Quantitative (0.19-0.50) mg/L Puncture Site Rt radial ABG pH 7.32 L (7.35-7.45) ABG pCO2 25.5 L (35.0-45.0) mmHg ABG pO2 53.0 L (80.0-100.0) mmHg ABG HCO3 12.7 L (22.0-26.0) meq/L ABG O2 Saturation 80.6 L (96.0-97.0) % ABG Base Excess -11.8 L (-2-2.0) Kali Test Positive A-a Gradient 628 mmHg O2 Delivery Device Hiflow nasal cannula Oxygen Flow Rate 60.0 FiO2 95.00 (21.00-100.00) % Blood Gas Comments Nrb&hfnc on this pt Sodium (136-145) mEq/L Potassium (3.5-5.1) mEq/L Chloride (98-107) mEq/L Carbon Dioxide (21-32) mEq/L Anion Gap (5-15) BUN (7-18) mg/dL Creatinine (0.7-1.3) mg/dL Est Cr Clr Drug Dosing mL/min Estimated GFR (MDRD) (>60) mL/min BUN/Creatinine Ratio (14-18) Glucose (74-106) mg/dL POC Glucose 262 H (70-105) mg/dL Lactic Acid (0.4-2.0) mmol/L Calcium (8.5-10.1) mg/dL Magnesium (1.8-2.4) mg/dl Vitamin D 25-Hydroxy 17.1 L (30.0-100.0) ng/ml Free T4 1.53 H (0.76-1.46) ng/dL TSH 3rd Generation 1.355 (0.358-3.74) uIU/mL 10/09/20 10/09/20 10/09/20 Range/Units 10:20 10:20 12:11 WBC (4.23-9.07) K/mm3 RBC (4.63-6.08) M/mm3 Hgb (13.7-17.5) gm/dl Hct (40.1-51.0) % MCV (79.0-92.2) fl MCH (25.7-32.2) pg MCHC (32.2-35.5) g/dl RDW Std Deviation (35.1-43.9) fL Plt Count (163-337) K/mm3 MPV (9.4-12.3) fl Neut % (Auto) (34.0-67.9) % Lymph % (Auto) (21.8-53.1) % [place] % (Auto) (5.3-12.2) % Eos % (Auto) (0.8-7.0) Baso % (Auto) (0.1-1.2) % Neut # (Auto) (1.78-5.38) K/mm3 Lymph # (Auto) (1.32-3.57) K/mm3 [place] # (Auto) (0.30-0.82) K/mm3 Eos # (Auto) (0.04-0.54) K/mm3 Baso # (Auto) (0.01-0.08) K/mm3 D-Dimer, Quantitative 3.27 H (0.19-0.50) mg/L Puncture Site ABG pH (7.35-7.45) ABG pCO2 (35.0-45.0) mmHg ABG pO2 (80.0-100.0) mmHg ABG HCO3 (22.0-26.0) meq/L ABG O2 Saturation (96.0-97.0) % ABG Base Excess (-2-2.0) Kali Test A-a Gradient mmHg O2 Delivery Device Oxygen Flow Rate FiO2 (21.00-100.00) % Blood Gas Comments Sodium (136-145) mEq/L Potassium (3.5-5.1) mEq/L Chloride (98-107) mEq/L Carbon Dioxide (21-32) mEq/L Anion Gap (5-15) BUN (7-18) mg/dL Creatinine (0.7-1.3) mg/dL Est Cr Clr Drug Dosing mL/min Estimated GFR (MDRD) (>60) mL/min BUN/Creatinine Ratio (14-18) Glucose (74-106) mg/dL POC Glucose 287 H (70-105) mg/dL Lactic Acid 1.7 (0.4-2.0) mmol/L Calcium (8.5-10.1) mg/dL Magnesium (1.8-2.4) mg/dl Vitamin D 25-Hydroxy (30.0-100.0) ng/ml Free T4 (0.76-1.46) ng/dL TSH 3rd Generation (0.358-3.74) uIU/mL 10/09/20 10/09/20 10/09/20 Range/Units 15:38 17:00 23:34 WBC (4.23-9.07) K/mm3 RBC (4.63-6.08) M/mm3 Hgb (13.7-17.5) gm/dl Hct (40.1-51.0) % MCV (79.0-92.2) fl MCH (25.7-32.2) pg MCHC (32.2-35.5) g/dl RDW Std Deviation (35.1-43.9) fL Plt Count (163-337) K/mm3 MPV (9.4-12.3) fl Neut % (Auto) (34.0-67.9) % Lymph % (Auto) (21.8-53.1) % [place] % (Auto) (5.3-12.2) % Eos % (Auto) (0.8-7.0) Baso % (Auto) (0.1-1.2) % Neut # (Auto) (1.78-5.38) K/mm3 Lymph # (Auto) (1.32-3.57) K/mm3 [place] # (Auto) (0.30-0.82) K/mm3 Eos # (Auto) (0.04-0.54) K/mm3 Baso # (Auto) (0.01-0.08) K/mm3 D-Dimer, Quantitative (0.19-0.50) mg/L Puncture Site ABG pH (7.35-7.45) ABG pCO2 (35.0-45.0) mmHg ABG pO2 (80.0-100.0) mmHg ABG HCO3 (22.0-26.0) meq/L ABG O2 Saturation (96.0-97.0) % ABG Base Excess (-2-2.0) Kali Test A-a Gradient mmHg O2 Delivery Device Oxygen Flow Rate FiO2 (21.00-100.00) % Blood Gas Comments Sodium 130 L (136-145) mEq/L Potassium 4.0 (3.5-5.1) mEq/L Chloride 100 (98-107) mEq/L Carbon Dioxide 17 L (21-32) mEq/L Anion Gap 17.0 H (5-15) BUN 46 H (7-18) mg/dL Creatinine 2.4 H (0.7-1.3) mg/dL Est Cr Clr Drug Dosing 36.75 mL/min Estimated GFR (MDRD) 28 (>60) mL/min BUN/Creatinine Ratio 19.2 H (14-18) Glucose 305 H (74-106) mg/dL POC Glucose 277 H 303 H (70-105) mg/dL Lactic Acid (0.4-2.0) mmol/L Calcium 7.6 L (8.5-10.1) mg/dL Magnesium (1.8-2.4) mg/dl Vitamin D 25-Hydroxy (30.0-100.0) ng/ml Free T4 (0.76-1.46) ng/dL TSH 3rd Generation (0.358-3.74) uIU/mL 10/10/20 10/10/20 10/10/20 Range/Units 04:58 04:58 05:38 WBC 13.62 H (4.23-9.07) K/mm3 RBC 4.53 L (4.63-6.08) M/mm3 Hgb 11.2 L (13.7-17.5) gm/dl Hct 34.4 L (40.1-51.0) % MCV 75.9 L (79.0-92.2) fl MCH 24.7 L (25.7-32.2) pg MCHC 32.6 (32.2-35.5) g/dl RDW Std Deviation 40.4 (35.1-43.9) fL Plt Count 220 D (163-337) K/mm3 MPV 11.2 (9.4-12.3) fl Neut % (Auto) 90.1 H (34.0-67.9) % Lymph % (Auto) 5.8 L (21.8-53.1) % [place] % (Auto) 3.8 L (5.3-12.2) % Eos % (Auto) 0 L (0.8-7.0) Baso % (Auto) 0.0 L (0.1-1.2) % Neut # (Auto) 12.27 H (1.78-5.38) K/mm3 Lymph # (Auto) 0.79 L (1.32-3.57) K/mm3 [place] # (Auto) 0.52 (0.30-0.82) K/mm3 Eos # (Auto) 0.00 L (0.04-0.54) K/mm3 Baso # (Auto) 0.00 L (0.01-0.08) K/mm3 D-Dimer, Quantitative (0.19-0.50) mg/L Puncture Site ABG pH (7.35-7.45) ABG pCO2 (35.0-45.0) mmHg ABG pO2 (80.0-100.0) mmHg ABG HCO3 (22.0-26.0) meq/L ABG O2 Saturation (96.0-97.0) % ABG Base Excess (-2-2.0) Kali Test A-a Gradient mmHg O2 Delivery Device Oxygen Flow Rate FiO2 (21.00-100.00) % Blood Gas Comments Sodium (136-145) mEq/L Potassium (3.5-5.1) mEq/L Chloride (98-107) mEq/L Carbon Dioxide (21-32) mEq/L Anion Gap (5-15) BUN (7-18) mg/dL Creatinine (0.7-1.3) mg/dL Est Cr Clr Drug Dosing mL/min Estimated GFR (MDRD) (>60) mL/min BUN/Creatinine Ratio (14-18) Glucose (74-106) mg/dL POC Glucose 280 H (70-105) mg/dL Lactic Acid (0.4-2.0) mmol/L Calcium (8.5-10.1) mg/dL Magnesium 1.8 (1.8-2.4) mg/dl Vitamin D 25-Hydroxy (30.0-100.0) ng/ml Free T4 (0.76-1.46) ng/dL TSH 3rd Generation (0.358-3.74) uIU/mL Med Orders - Current: Current Medications Acetaminophen (Tylenol) 650 mg PO Q4H PRN PRN Reason: Pain (Mild 1-3)/fever Acetaminophen (Tylenol) 650 mg RECTAL Q4H PRN PRN Reason: Pain (mild 1-3) Hydrocodone Bitart/Acetaminophen ([place] 325-5 Mg) 1 tab PO Q4H PRN PRN Reason: Pain (moderate 4-6) Albuterol/Ipratropium (Duoneb 3.0-0.5 Mg/3 Ml) 3 ml NEB Q4HRRT PRN PRN Reason: Shortness Of Breath/wheezing Baclofen (Lioresal) 10 mg PO TID [facility] Last Admin: 10/09/20 20:59 Dose: 10 mg Documented by: Cholecalciferol (Vitamin D3) 5,000 unit PO DAILY [facility] Dexamethasone (Decadron) 10 mg IVPUSH Q12HR [facility] Stop: 10/14/20 21:01 Last Admin: 10/09/20 20:56 Dose: 10 mg Documented by: Enoxaparin Sodium (Lovenox) 40 mg SUBCUT BID [facility] Last Admin: 10/09/20 20:53 Dose: 40 mg Documented by: Famotidine (Pepcid) 20 mg IVPUSH DAILY [facility] Last Admin: 10/09/20 20:54 Dose: 20 mg Documented by: Gabapentin (Neurontin) 1,200 mg PO BEDTIME [facility] Last Admin: 10/09/20 20:59 Dose: 1,200 mg Documented by: Gabapentin (Neurontin) 600 mg PO BID@0600,1300 [facility] Last Admin: 10/10/20 06:44 Dose: 600 mg Documented by: Haloperidol Lactate (Haldol) 5 mg IVPUSH Q8H PRN PRN Reason: Anxiety Hydralazine HCl (Apresoline) 20 mg IVPUSH Q4H PRN PRN Reason: Hypertension Last Admin: 10/10/20 04:38 Dose: 20 mg Documented by: Hydromorphone HCl (Dilaudid) 0.5 mg IVPUSH Q2H PRN PRN Reason: Pain (severe 7-10) Hydromorphone HCl (Dilaudid) 2 mg IVPUSH Q4H PRN PRN Reason: Pain Last Admin: 10/10/20 04:45 Dose: 2 mg Documented by: Azithromycin 500 mg/ Sodium (Chloride) 250 mls @ 250 mls/hr IV Q24H [facility] Last Admin: 10/10/20 04:31 Dose: 250 mls/hr Documented by: Promethazine HCl 12.5 mg/ (Sodium Chloride) 50.5 mls @ 100 mls/hr IV Q6H PRN PRN Reason: Nausea/Vomiting Remdesivir 100 mg/ Sodium (Chloride) 100 mls @ 100 mls/hr IV Q24H [facility] Stop: 10/13/20 09:59 Ceftriaxone Sodium 1 gm/ (Sodium Chloride) 100 mls @ 200 mls/hr IV Q24H [facility] Stop: 10/14/20 09:01 Sodium Chloride (Normal Saline) 1,000 mls @ 35 mls/hr IV ASDIRECTED [facility] Stop: 10/10/20 23:44 Last Admin: 10/10/20 00:49 Dose: 35 mls/hr Documented by: Ibuprofen (Motrin) 600 mg PO Q6H PRN PRN Reason: Pain (moderate 4-6) Insulin Glargine (Lantus) 15 unit SUBCUT BID@0600,1700 [facility] Last Admin: 10/10/20 06:44 Dose: 15 units Documented by: Insulin Human Lispro (Humalog) 0 unit SUBCUT Q6H PRN; Protocol PRN Reason: Hyperglycemia Last Admin: 10/10/20 06:46 Dose: 6 units Documented by: Ondansetron HCl (Zofran) 4 mg IV Q6H PRN PRN Reason: Nausea/Vomiting Oxycodone HCl (Oxycontin) 20 mg PO Q12HR PRN PRN Reason: Pain Last Admin: 10/09/20 12:07 Dose: 20 mg Documented by: Polyethylene Glycol (Miralax) 17 gm PO DAILY PRN PRN Reason: Constipation Ropinirole HCl (Requip) 1 mg PO BEDTIME [facility] Last Admin: 10/09/20 20:59 Dose: 1 mg Documented by: Senna/Docusate Sodium (Senna Plus) 1 tab PO BID PRN PRN Reason: Constipation Zinc Sulfate (Zincate) 220 mg PO DAILY [facility] Last Admin: 10/09/20 08:30 Dose: 220 mg Documented by: Discontinued Medications Dexamethasone (Decadron) 6 mg IVPUSH ONETIME ONE Stop: 10/09/20 02:53 Last Admin: 10/09/20 03:08 Dose: 6 mg Documented by: Famotidine (Pepcid) 20 mg IVPUSH BID [facility] Furosemide (Lasix) 20 mg IVPUSH NOW ONE Stop: 10/09/20 07:53 Last Admin: 10/09/20 07:42 Dose: 20 mg Documented by: Furosemide (Lasix) 20 mg IVPUSH NOW ONE Stop: 10/09/20 20:01 Furosemide (Lasix) 20 mg IVPUSH NOW ONE Stop: 10/09/20 21:01 Furosemide (Lasix) 20 mg IVPUSH ONETIME ONE Stop: 10/09/20 20:01 Last Admin: 10/09/20 19:12 Dose: 20 mg Documented by: Haloperidol Lactate (Haldol) 3 mg IVPUSH ONETIME ONE Stop: 10/09/20 07:43 Last Admin: 10/09/20 07:42 Dose: 3 mg Documented by: Haloperidol Lactate (Haldol) 3 mg IVPUSH Q6H PRN PRN Reason: Anxiety Haloperidol Lactate (Haldol) 2 mg IVPUSH ONETIME ONE Stop: 10/09/20 10:36 Last Admin: 10/09/20 10:54 Dose: 3 mg Documented by: Ceftriaxone Sodium 2 gm/ (Sodium Chloride) 100 mls @ 200 mls/hr IV ONETIME ONE Stop: 10/09/20 03:21 Last Admin: 10/09/20 03:10 Dose: 200 mls/hr Documented by: Remdesivir 200 mg/ Sodium (Chloride) 250 mls @ 250 mls/hr IV ONETIME ONE Stop: 10/09/20 05:15 Last Admin: 10/09/20 06:50 Dose: 250 mls/hr Documented by: Ceftriaxone Sodium 1 gm/ (Sodium Chloride) 100 mls @ 200 mls/hr IV Q24H [facility] Stop: 10/14/20 09:01 Insulin Glargine (Lantus) 15 unit SUBCUT BIDAC [facility] Insulin Human Lispro (Humalog) 0 unit SUBCUT TIDAC PRN; Protocol PRN Reason: Hyperglycemia Last Admin: 10/09/20 12:17 Dose: 6 units Documented by: Lidocaine (Aspercreme 4%) 1 each TOP DAILY [facility] Last Admin: 10/09/20 11:00 Dose: 1 each Documented by: Miscellaneous Information (Remove Patch) 1 ea TRDERM BEDTIME [facility] Last Admin: 10/09/20 12:08 Dose: 1 ea Documented by: - Exam Quality Assessment: Supplemental Oxygen, Urine Catheter, DVT Prophylaxis General: Alert, Cooperative, No Acute Distress, Other (He is alert and awake and comfortable) Lungs: Crackles, Rhonchi Cardiovascular: Regular Rate, Regular Rhythm (Male) Exam: Deferred Back Exam: Normal Inspection Extremities: Normal Range of Motion Peripheral Pulses: 2+: Dorsalis Pedis (L), Dorsalis Pedis (R) Skin: Warm, Dry, Intact Wound/Incisions: No Drainage, Decubitis Psy/Mental Status: Alert Physical Findings Comments:: Physical exam is limited by him being on a prone position Sepsis Event Note - Evaluation Sepsis Screening Result: No Definite Risk - Focused Exam Vital Signs: Vital Signs Temp Resp BP Pulse Ox Pulse Ox 10/10/20 06:18 13 118/51 L 90 L 10/10/20 06:01 89 L 10/10/20 04:00 36.5 C 19 167/65 H 89 L 10/10/20 02:12 90 L 10/10/20 00:55 15 127/60 88 L 10/09/20 23:42 36.7 C 16 168/70 H 88 L 10/09/20 23:21 88 L 10/09/20 20:00 37.0 C 16 180/85 H 86 L 10/09/20 19:45 88 L 10/09/20 19:30 77 L - Problem List Review Problem List Initiated/Reviewed/Updated: Yes - My Orders Last 24 Hours: My Active Orders 10/09/20 Breakfast Clear Liquid Diet [DIET] 10/09/20 07:30 Insert Li Catheter [Insert Urinary Catheter] [OM.PC] Q24H 10/09/20 07:38 Bedrest Bedside Commode [RC] ASDIRECTED Cardiac Monitoring [RC] CONTINUOUS Height and Weight [RC] 0400 Intake and Output [RC] Q2HR Oxygen Therapy [RC] PRN Pulse Oximetry [RC] CONTINUOUS Urinary Catheter Assessment [RC] Q4HR Consult to Case Management/Temp Recruiter [CONS] Routine Respiratory Care Assess and Treatment [CONS] Routine CULTURE SPUTUM + SMEAR [RM] Stat Acetaminophen [TylenoL] 650 mg PO Q4H PRN Acetaminophen [Tylenol] 650 mg RECTAL Q4H PRN Acetaminophen/HYDROcodone [[place] 325-5 MG] 1 tab PO Q4H PRN Docusate Sodium/Sennosides [Senna Plus] 1 tab PO BID PRN HYDROmorphone [Dilaudid] 0.5 mg IVPUSH Q2H PRN Ibuprofen [Motrin] 600 mg PO Q6H PRN Ondansetron [Zofran] 4 mg IV Q6H PRN Promethazine [Phenergan] 12.5 mg Sodium Chloride 0.9% [Normal Saline] 50 ml IV Q6H polyethylene glycoL 3350 [MiraLAX] 17 gm PO DAILY PRN Blood Culture x2 Reflex Set [OM.PC] Stat 10/09/20 07:48 Accu Check [Blood Glucose Check, Bedside] [RC] Q6HR 10/09/20 07:52 Albuterol/Ipratropium [DuoNeb 3.0-0.5 MG/3 ML] 3 ml NEB Q4HRRT PRN 10/09/20 07:53 RT Aerosol Therapy [RC] ASDIRECTED 10/09/20 08:40 CULTURE BLOOD [BC] Stat 10/09/20 08:48 CULTURE BLOOD [BC] Stat 10/09/20 09:00 Enoxaparin [Lovenox] 40 mg SUBCUT BID Zinc Sulfate [Zincate] 220 mg PO DAILY 10/09/20 10:10 hydrALAZINE [Apresoline] 20 mg IVPUSH Q4H PRN 10/09/20 10:20 DRUG SCR 10 W REF CONF SERUM [REF] Stat 10/09/20 10:28 HYDROmorphone [Dilaudid] 2 mg IVPUSH Q4H PRN 10/09/20 10:35 Haloperidol Lactate [Haldol] 5 mg IVPUSH Q8H PRN 10/09/20 10:52 oxyCODONE ER [OxyCONTIN] 20 mg PO Q12HR PRN 10/09/20 13:00 Gabapentin [Neurontin] 600 mg PO BID@0600,1300 10/09/20 15:00 Baclofen [Lioresal] 10 mg PO TID 10/09/20 16:00 Insulin Lispro [HumaLOG] See Protocol SUBCUT Q6H PRN 10/09/20 17:00 Insulin Glarg,Human.Rec.Analog [LantUS] 15 unit SUBCUT BID@0600,1700 10/09/20 21:00 Famotidine [Pepcid] 20 mg IVPUSH DAILY Gabapentin [Neurontin] 1,200 mg PO BEDTIME dexAMETHasone [Decadron] 10 mg IVPUSH Q12HR rOPINIRole [Requip] 1 mg PO BEDTIME 10/09/20 23:45 Sodium Chloride 0.9% [Normal Saline] 1,000 ml IV ASDIRECTED 10/10/20 04:58 C-REACTIVE PROTEIN [CHEM] AM CBC WITH AUTO DIFF [HEME] AM ESR [SEDIMENTATION RATE AUTO] [HEME] AM HEPATIC FUNCTION PANEL,HFP [CHEM] DAILY MAGNESIUM [CHEM] AM 10/10/20 06:00 ABG [RT Arterial Blood Gases, ABG] [RC] Click to Edit Chest 1V Frontal [CR] Routine 10/10/20 09:00 Cholecalciferol (Vitamin D3) [Vitamin D3] 5,000 unit PO DAILY Remdesivir 100 mg Sodium Chloride 0.9% [Normal Saline] 100 ml IV Q24H cefTRIAXone [Rocephin] 1 gm Sodium Chloride 0.9% [Normal Saline] 100 ml IV Q24H 10/11/20 05:00 D-DIMER QUANTITATIVE [COAG] Routine 10/11/20 05:11 C-REACTIVE PROTEIN [CHEM] AM CBC WITH AUTO DIFF [HEME] AM COMPREHENSIVE METABOLIC PN,CMP [CHEM] AM ESR [SEDIMENTATION RATE AUTO] [HEME] AM MAGNESIUM [CHEM] AM 10/11/20 05:15 HEPATIC FUNCTION PANEL,HFP [CHEM] DAILY 10/12/20 05:11 C-REACTIVE PROTEIN [CHEM] AM CBC WITH AUTO DIFF [HEME] AM COMPREHENSIVE METABOLIC PN,CMP [CHEM] AM ESR [SEDIMENTATION RATE AUTO] [HEME] AM MAGNESIUM [CHEM] AM 10/12/20 05:15 HEPATIC FUNCTION PANEL,HFP [CHEM] DAILY 10/13/20 05:11 C-REACTIVE PROTEIN [CHEM] AM CBC WITH AUTO DIFF [HEME] AM COMPREHENSIVE METABOLIC PN,CMP [CHEM] AM ESR [SEDIMENTATION RATE AUTO] [HEME] AM MAGNESIUM [CHEM] AM 10/13/20 05:15 HEPATIC FUNCTION PANEL,HFP [CHEM] DAILY 10/14/20 05:11 C-REACTIVE PROTEIN [CHEM] AM CBC WITH AUTO DIFF [HEME] AM COMPREHENSIVE METABOLIC PN,CMP [CHEM] AM ESR [SEDIMENTATION RATE AUTO] [HEME] AM MAGNESIUM [CHEM] AM 10/14/20 05:15 HEPATIC FUNCTION PANEL,HFP [CHEM] DAILY 10/15/20 05:11 C-REACTIVE PROTEIN [CHEM] AM CBC WITH AUTO DIFF [HEME] AM COMPREHENSIVE METABOLIC PN,CMP [CHEM] AM MAGNESIUM [CHEM] AM 10/16/20 05:11 C-REACTIVE PROTEIN [CHEM] AM CBC WITH AUTO DIFF [HEME] AM COMPREHENSIVE METABOLIC PN,CMP [CHEM] AM MAGNESIUM [CHEM] AM - Plan Plan:: This is a 55 yo male with past medical hx/o HTN, HLD, Hx/o [place], CAD S/p CABG in 2006, DM2, Diabetic Nephropathy, PAD, Back Pain, Recent Amputation of his Left Great Toe, Diabetic foot ulcer of the left foot and Obesity who presented to ED midnight with 3 day hx/o COVID-19 symptoms. Assessment: Acute: COVID-19 Infection Viral Pneumonitis/Atypical Pneumonia ARDS Severe Hypoxia on 15L NRM Acute Hypoxic Respiratory Failure, remains on BIPAP Leukocytosis with WBC of 13.62 and Neutrophils of 90.1% Microcytic Normochromic Anemia with Hgb of 11.2 grams Hypovolemic Hyponatremia with Na of 130 Hypochloremia with Cl of 97, resolved now at 100 Increased AG Metabolic Acidosis Acute Kidney Injury, no previous level for comparison Hyperglycemia with DM2, not controlled due to steroid Lactic Acidosis, resolved Hypocalcemia with non-corrected Ca level of 7.9, now 7.6 Hypomagnesemia with Mg of 1.6, resolved now 1.8 Elevated Ferritin of 912 Mildly Elevated AST of 42 Elevated LDH of 495 Elevated CRP of 19.1, now 24.9 Elevated ProBNP of 1123 Hypoalbuminemia with Albumin of 2.4, now 2.1 Vitamin D deficiency with Vit D level of 17.1, no supplement Elevated D-Dimer, on lovenox 40 mg subQ BID Hypertension, has been NPO Tachypnea and Sinus Tachycardia, resolved Class I Obese Chronic: HTN, HLD, Hx/o [place], CAD S/p CABG in 2006, DM2, Diabetic Nephropathy, PAD, Back Pain, Recent Amputation of his Left Great Toe, Diabetic foot ulcer of the left foot and Obesity Plan: Continue current treatment. IV antibiotic with rocephin and azithromycin to cover for atypical pneumonia. 5 day course of Veklury. Dexamethasone 10 mg IVP Q12H. Daily Lasix 20 mg IVP. Lovenox 40 mg subQ BID due to elevated D-dimer. Continue pain regimen. Accu-check TIADAC with high intensity ISS and Lantus 15 units subQ BID. Continue pain regimen for pain and comfort with proning. Aggressive proning protocol. Haldol 5 mg q8H PRN for restlessness and anxiety. Avoid Benzo due to respiratory depression. DVT prophylaxis: Lovenox subQ BID. GI prophylaxis: H2B. Zin oral and Vit D supplements. PT/OT when appropriate. Continue daily Lasix. Wound care consult. Serial x-ray and ABGs as indicated. Prognosis remains guarded. Critical care time spent: > 35 mins
[2020-10-10] MEDS ORDERED: Furosemide 20 MG/2 ML VIAL IVPUSH ONE (09:00)
[2020-10-10] MEDS ORDERED: REMDESIVIR 100 MG in Sodium Chloride 0.9% 100 ML IV SCH (09:00)
[2020-10-10] MEDS ORDERED: Cholecalciferol (Vitamin D3) 5,000 UNIT Cap PO SCH (09:00)
[2020-10-10] MEDS ORDERED: cefTRIAXone 1 GM in Sodium Chloride 0.9% 100 ML IV SCH ×2 (09:00)
[2020-10-10] MEDS: Dexamethasone 10 MG/ML SDV IVPUSH SCH (09:26)
[2020-10-10] MEDS: Famotidine 20 MG/2 ML SDV IVPUSH SCH (09:28)
[2020-10-10] MEDS: Zinc Sulfate 220 MG Cap PO SCH (09:29)
[2020-10-10] MEDS: Baclofen 10 MG Tab PO SCH ×2 (09:30→17:46)
[2020-10-10] MEDS: Enoxaparin 40 MG/0.4 ML Syringe SUBCUT SCH (09:30)
[2020-10-10] MEDS: HYDROmorphone 0.5 MG/0.5 ML Syringe IVPUSH PRN ×2 (10:08→14:18)
--- NOTE | 2020-10-10 12:28 | CR ---
Chest: Portable view of the chest was obtained in prone position. Comparison: Prior chest x-ray of 10/09/20. Diffuse haziness is noted throughout both sides of the chest which has increased in prominence from prior exam. Heart size and mediastinum are normal. Previous sternotomy is noted. Previous cervical spine surgery is noted. Impression: 1. Increasing density on both sides of the chest which has worsened from prior exam. Diagnostic code #5
[2020-10-10] MEDS ORDERED: Insulin Glarg,Human.Rec.Analog 100 Unit/ML SUBCUT SCH (17:00)
[2020-10-10] MEDS ORDERED: Atropine 0.1 MG/ML 10 ML Syringe ONE ×4 (19:00→19:26)
[2020-10-10] MEDS ORDERED: Sodium Bicarbonate 8.4% 50 MEQ/50 ML Syringe ONE ×2 (19:00)
[2020-10-10] MEDS ORDERED: Calcium Chloride 10% 1 GM/10 ML Syringe ONE (19:00)
[2020-10-10] MEDS ORDERED: EPINEPHrine 1:10,000 1 MG/10 ML Syringe ONE ×11 (19:00→19:40)
[2020-10-10] MEDS ORDERED: propofoL 100 ML ONE (19:08)
[2020-10-10] MEDS ORDERED: Dextrose 5% in Water 100 ML ONE ×2 (19:33→19:35)
[2020-10-10] MEDS ORDERED: EPINEPHrine 1 MG in Dextrose 5% in Water 99 ML IV SCH ×4 (19:45)
--- NOTE | 2020-10-10 19:59 | PCM.SN.2 ---
- Free Text/Narrative Note: Patient developed acute respiratory distress after removing his BIPAP. He was doing fine all day but this evening per nurse, he removed all his wires and BIPAP abruptly. Then afterwards, he had difficulty breathing and immediately went into cardiopulmonary arrest. Code blue was activated and RR team proceeded to his room. The resuscitation process was lead by Dr. Vaz. I was at the time with a patient going over patient care with them and family. However after 25 mins of resuscitation, I took over the as the bakery team leader and proceeded to continue with resuscitation. We contacted his Louisa and informed her or what just happened. We told her to come to the hospital right away. Unfortunately we were not able to bring him back successfully even after an hour of resuscitation. His underlying rhythm was initially asystole but PEA for the most part. A total of 9 mg of epi, 3 mg of atropin, 2 amps of bicarb, 1 amp of calcium, and epi gtt was administered during the resuscitation process. We met up with his to update and console her as soon as she made it to the hospital.
--- NOTE | 2020-10-10 19:59 | PCM.DCSUM1 ---
Discharge Summary - Hospital Course Brief History: This is a 55 yo male with past medical hx/o HTN, HLD, Hx/o TN, CAD S/p CABG in 2006, DM2, Diabetic Nephropathy, PAD, Recent Amputation of his Left Great Toe, Diabetic left foot ulcer and Obesity who presented to ED midnight with 3 day hx/o COVID-19 symptoms. - Discharge Data Discharge Date: 10/10/20 Preliminary Cause of *Q: Cardiac Arrest Condition: - Referral to Home Health Primary Care Physician: PCP Not In Area - Patient Summary/Data Operative Procedure(s) Performed: None Complications: Patient Consults: Consultations 10/09/20 07:38 Consult to Case Management/Dairy Equipment Installer [CONS] Routine Respiratory Care Assess and Treatment [CONS] Routine Hospital Course: Patient was admitted to the hospital for COVID-19 Infection. He had been symptomatic for the past 3 days and remained unwell. He received initial treatment in ED and we continued his covid regimen when he presented to the unit. His inflammatory markers were elevated and his chest x-ray showed viral pneumonitis consistent with SARS-COV 2 virus. He was initially put on high flow to improve his oxygenation and then finally on BIPAP. We offered to intubate and put him on mechanical ventilation but he refused it. We worked with him to take care his anxiety and pain as he agreed with proning protocol. He did well for the most part. Unexpectedly, he abruptly took his non-invasive ventilation off and all his thoracic cardiac cables. Right away, he developed acute respiratory distress followed by cardiopulmonary arrest. Code blue was activated and he was resuscitated at least an hour. Unfortunately despite our heroic effort, we were not able to bring him back successfully. He was pronounced right before his could make to see him. - Discharge Plan Home Medications: Home Meds Albuterol Sulfate [Proair Hfa] 2 puff INH BID PRN 10/09/20 [History] Aspirin [Aspirin EC] 325 mg PO DAILY 10/09/20 [History] Baclofen 10 mg PO TID 10/09/20 [History] Docusate Sodium 100 mg PO BID 10/09/20 [History] Folic Acid/Multivit-Min/Lutein [Multi-Vitamin Gummies] 2 each PO DAILY 10/09/20 [History] Gabapentin [Neurontin] 1,200 mg PO BEDTIME 10/09/20 [History] Gabapentin [Neurontin] 600 mg PO BID 10/09/20 [History] Ibuprofen 800 mg PO Q8H PRN 10/09/20 [History] Insulin Aspart [NovoLOG] 1 unit SQ WITHMEALSANDBED 10/09/20 [History] Insulin Detemir [Levemir] 38 unit SUBCUT BEDTIME 10/09/20 [History] Losartan [Cozaar] 100 mg PO DAILY 10/09/20 [History] Magnesium Oxide 400 mg PO DAILY 10/09/20 [History] Metoprolol Tartrate 50 mg PO BID 10/09/20 [History] amLODIPine [Norvasc] 5 mg PO DAILY 10/09/20 [History] atorvaSTATin [Lipitor] 80 mg PO BEDTIME 10/09/20 [History] rOPINIRole [Requip] 1 mg PO BEDTIME 10/09/20 [History] Referrals: PCP,Not In Area [Primary Care Provider] - - Discharge Summary/Plan Comment DC Time >30 min.: No Discharge Summary/Plan Comment: Patient . His body was transferred to a local central hospital for processing. - General Info Date of Service: 10/10/20 Admission Dx/Problem (Free Text: Admission Diagnosis/Problem Admission Diagnosis/Problem Pneumonia Subjective Update: ROS not able to obtain. Patient . - Patient Data Vitals - Most Recent: Last Vital Signs Temp 36.6 C 10/10/20 16:00 Pulse 85 10/09/20 16:00 Resp 28 H 10/10/20 16:00 BP 144/79 H 10/10/20 16:00 Pulse Ox 100 10/10/20 16:00 Weight - Most Recent: 105.233 kg I&O - Last 24 hours: Intake & Output 10/10/20 10/10/20 10/10/20 06:59 14:59 22:59 Intake Total 176 245 1419 Output Total 575 320 400 Balance 106 280 747 Lab Results - Last 24 hrs: Laboratory Results - last 24 hr 10/09/20 10/10/20 10/10/20 Range/Units 23:34 04:58 04:58 WBC 13.62 H (4.23-9.07) K/mm3 RBC 4.53 L (4.63-6.08) M/mm3 Hgb 11.2 L (13.7-17.5) gm/dl Hct 34.4 L (40.1-51.0) % MCV 75.9 L (79.0-92.2) fl MCH 24.7 L (25.7-32.2) pg MCHC 32.6 (32.2-35.5) g/dl RDW Std Deviation 40.4 (35.1-43.9) fL Plt Count 220 D (163-337) K/mm3 MPV 11.2 (9.4-12.3) fl Neut % (Auto) 90.1 H (34.0-67.9) % Lymph % (Auto) 5.8 L (21.8-53.1) % Towner % (Auto) 3.8 L (5.3-12.2) % Eos % (Auto) 0 L (0.8-7.0) Baso % (Auto) 0.0 L (0.1-1.2) % Neut # (Auto) 12.27 H (1.78-5.38) K/mm3 Lymph # (Auto) 0.79 L (1.32-3.57) K/mm3 [place] # (Auto) 0.52 (0.30-0.82) K/mm3 Eos # (Auto) 0.00 L (0.04-0.54) K/mm3 Baso # (Auto) 0.00 L (0.01-0.08) K/mm3 Manual Slide Review Abnormal smear ESR (0-15) mm/hr D-Dimer, Quantitative (0.19-0.50) mg/L Sodium (136-145) mEq/L Potassium (3.5-5.1) mEq/L Chloride (98-107) mEq/L Carbon Dioxide (21-32) mEq/L Anion Gap (5-15) BUN (7-18) mg/dL Creatinine (0.7-1.3) mg/dL Est Cr Clr Drug Dosing mL/min Estimated GFR (MDRD) (>60) mL/min BUN/Creatinine Ratio (14-18) Glucose (74-106) mg/dL POC Glucose 303 H (70-105) mg/dL Calcium (8.5-10.1) mg/dL Magnesium (1.8-2.4) mg/dl Total Bilirubin 0.4 (0.2-1.0) mg/dL Direct Bilirubin 0.10 (0.0-0.2) mg/dl Indirect Bilirubin 0.30 AST 47 H (15-37) U/L ALT 44 (16-63) U/L Alkaline Phosphatase 116 (46-116) U/L Troponin I (0.00-0.056) ng/mL C-Reactive Protein (<1.0) mg/dL Total Protein 7.2 (6.4-8.2) g/dl Albumin 2.1 L (3.4-5.0) g/dl Globulin 5.1 gm/dL Albumin/Globulin Ratio 0.4 L (1-2) 10/10/20 10/10/20 10/10/20 Range/Units 04:58 04:58 04:58 WBC (4.23-9.07) K/mm3 RBC (4.63-6.08) M/mm3 Hgb (13.7-17.5) gm/dl Hct (40.1-51.0) % MCV (79.0-92.2) fl MCH (25.7-32.2) pg MCHC (32.2-35.5) g/dl RDW Std Deviation (35.1-43.9) fL Plt Count (163-337) K/mm3 MPV (9.4-12.3) fl Neut % (Auto) (34.0-67.9) % Lymph % (Auto) (21.8-53.1) % Towner % (Auto) (5.3-12.2) % Eos % (Auto) (0.8-7.0) Baso % (Auto) (0.1-1.2) % Neut # (Auto) (1.78-5.38) K/mm3 Lymph # (Auto) (1.32-3.57) K/mm3 [place] # (Auto) (0.30-0.82) K/mm3 Eos # (Auto) (0.04-0.54) K/mm3 Baso # (Auto) (0.01-0.08) K/mm3 Manual Slide Review ESR 58 H (0-15) mm/hr D-Dimer, Quantitative (0.19-0.50) mg/L Sodium 131 L (136-145) mEq/L Potassium 4.3 (3.5-5.1) mEq/L Chloride 100 (98-107) mEq/L Carbon Dioxide 12 L (21-32) mEq/L Anion Gap 23.3 H (5-15) BUN 63 H (7-18) mg/dL Creatinine 2.5 H (0.7-1.3) mg/dL Est Cr Clr Drug Dosing 35.28 mL/min Estimated GFR (MDRD) 27 (>60) mL/min BUN/Creatinine Ratio 25.2 H (14-18) Glucose 321 H (74-106) mg/dL POC Glucose (70-105) mg/dL Calcium 8.1 L (8.5-10.1) mg/dL Magnesium 1.8 (1.8-2.4) mg/dl Total Bilirubin (0.2-1.0) mg/dL Direct Bilirubin (0.0-0.2) mg/dl Indirect Bilirubin AST (15-37) U/L ALT (16-63) U/L Alkaline Phosphatase (46-116) U/L Troponin I (0.00-0.056) ng/mL C-Reactive Protein 24.9 H* (<1.0) mg/dL Total Protein (6.4-8.2) g/dl Albumin (3.4-5.0) g/dl Globulin gm/dL Albumin/Globulin Ratio (1-2) 10/10/20 10/10/20 10/10/20 Range/Units 05:38 12:46 13:42 WBC (4.23-9.07) K/mm3 RBC (4.63-6.08) M/mm3 Hgb (13.7-17.5) gm/dl Hct (40.1-51.0) % MCV (79.0-92.2) fl MCH (25.7-32.2) pg MCHC (32.2-35.5) g/dl RDW Std Deviation (35.1-43.9) fL Plt Count (163-337) K/mm3 MPV (9.4-12.3) fl Neut % (Auto) (34.0-67.9) % Lymph % (Auto) (21.8-53.1) % Towner % (Auto) (5.3-12.2) % Eos % (Auto) (0.8-7.0) Baso % (Auto) (0.1-1.2) % Neut # (Auto) (1.78-5.38) K/mm3 Lymph # (Auto) (1.32-3.57) K/mm3 [place] # (Auto) (0.30-0.82) K/mm3 Eos # (Auto) (0.04-0.54) K/mm3 Baso # (Auto) (0.01-0.08) K/mm3 Manual Slide Review ESR (0-15) mm/hr D-Dimer, Quantitative (0.19-0.50) mg/L Sodium (136-145) mEq/L Potassium (3.5-5.1) mEq/L Chloride (98-107) mEq/L Carbon Dioxide (21-32) mEq/L Anion Gap (5-15) BUN (7-18) mg/dL Creatinine (0.7-1.3) mg/dL Est Cr Clr Drug Dosing mL/min Estimated GFR (MDRD) (>60) mL/min BUN/Creatinine Ratio (14-18) Glucose (74-106) mg/dL POC Glucose 280 H 388 H 389 H (70-105) mg/dL Calcium (8.5-10.1) mg/dL Magnesium (1.8-2.4) mg/dl Total Bilirubin (0.2-1.0) mg/dL Direct Bilirubin (0.0-0.2) mg/dl Indirect Bilirubin AST (15-37) U/L ALT (16-63) U/L Alkaline Phosphatase (46-116) U/L Troponin I (0.00-0.056) ng/mL C-Reactive Protein (<1.0) mg/dL Total Protein (6.4-8.2) g/dl Albumin (3.4-5.0) g/dl Globulin gm/dL Albumin/Globulin Ratio (1-2) 10/10/20 10/10/20 10/10/20 Range/Units 18:33 19:10 19:10 WBC 19.90 H (4.23-9.07) K/mm3 RBC 4.49 L (4.63-6.08) M/mm3 Hgb 11.3 L (13.7-17.5) gm/dl Hct 34.9 L (40.1-51.0) % MCV 77.7 L (79.0-92.2) fl MCH 25.2 L (25.7-32.2) pg MCHC 32.4 (32.2-35.5) g/dl RDW Std Deviation 41.9 (35.1-43.9) fL Plt Count 249 (163-337) K/mm3 MPV 11.0 (9.4-12.3) fl Neut % (Auto) 80.7 H (34.0-67.9) % Lymph % (Auto) 12.4 L (21.8-53.1) % Towner % (Auto) 5.8 (5.3-12.2) % Eos % (Auto) 0 L (0.8-7.0) Baso % (Auto) 0.2 (0.1-1.2) % Neut # (Auto) 16.07 H (1.78-5.38) K/mm3 Lymph # (Auto) 2.47 (1.32-3.57) K/mm3 [place]er # (Auto) 1.16 H (0.30-0.82) K/mm3 Eos # (Auto) 0.00 L (0.04-0.54) K/mm3 Baso # (Auto) 0.03 (0.01-0.08) K/mm3 Manual Slide Review Abnormal smear ESR (0-15) mm/hr D-Dimer, Quantitative (0.19-0.50) mg/L Sodium 137 (136-145) mEq/L Potassium 3.5 (3.5-5.1) mEq/L Chloride 102 (98-107) mEq/L Carbon Dioxide 14 L (21-32) mEq/L Anion Gap 24.5 H (5-15) BUN 83 H (7-18) mg/dL Creatinine 3.4 H (0.7-1.3) mg/dL Est Cr Clr Drug Dosing 25.94 mL/min Estimated GFR (MDRD) 19 (>60) mL/min BUN/Creatinine Ratio 24.4 H (14-18) Glucose 408 H 423 H (74-106) mg/dL POC Glucose (70-105) mg/dL Calcium 8.1 L (8.5-10.1) mg/dL Magnesium (1.8-2.4) mg/dl Total Bilirubin 0.3 (0.2-1.0) mg/dL Direct Bilirubin (0.0-0.2) mg/dl Indirect Bilirubin AST 71 H (15-37) U/L ALT 49 (16-63) U/L Alkaline Phosphatase 175 H (46-116) U/L Troponin I 0.251 H* (0.00-0.056) ng/mL C-Reactive Protein (<1.0) mg/dL Total Protein 7.5 (6.4-8.2) g/dl Albumin 2.2 L (3.4-5.0) g/dl Globulin 5.3 gm/dL Albumin/Globulin Ratio 0.4 L (1-2) 12/21/20 Range/Units 19:10 WBC (4.23-9.07) K/mm3 RBC (4.63-6.08) M/mm3 Hgb (13.7-17.5) gm/dl Hct (40.1-51.0) % MCV (79.0-92.2) fl MCH (25.7-32.2) pg MCHC (32.2-35.5) g/dl RDW Std Deviation (35.1-43.9) fL Plt Count (163-337) K/mm3 MPV (9.4-12.3) fl Neut % (Auto) (34.0-67.9) % Lymph % (Auto) (21.8-53.1) % Towner % (Auto) (5.3-12.2) % Eos % (Auto) (0.8-7.0) Baso % (Auto) (0.1-1.2) % Neut # (Auto) (1.78-5.38) K/mm3 Lymph # (Auto) (1.32-3.57) K/mm3 [place]er # (Auto) (0.30-0.82) K/mm3 Eos # (Auto) (0.04-0.54) K/mm3 Baso # (Auto) (0.01-0.08) K/mm3 Manual Slide Review ESR (0-15) mm/hr D-Dimer, Quantitative 6.13 H (0.19-0.50) mg/L Sodium (136-145) mEq/L Potassium (3.5-5.1) mEq/L Chloride (98-107) mEq/L Carbon Dioxide (21-32) mEq/L Anion Gap (5-15) BUN (7-18) mg/dL Creatinine (0.7-1.3) mg/dL Est Cr Clr Drug Dosing mL/min Estimated GFR (MDRD) (>60) mL/min BUN/Creatinine Ratio (14-18) Glucose (74-106) mg/dL POC Glucose (70-105) mg/dL Calcium (8.5-10.1) mg/dL Magnesium (1.8-2.4) mg/dl Total Bilirubin (0.2-1.0) mg/dL Direct Bilirubin (0.0-0.2) mg/dl Indirect Bilirubin AST (15-37) U/L ALT (16-63) U/L Alkaline Phosphatase (46-116) U/L Troponin I (0.00-0.056) ng/mL C-Reactive Protein (<1.0) mg/dL Total Protein (6.4-8.2) g/dl Albumin (3.4-5.0) g/dl Globulin gm/dL Albumin/Globulin Ratio (1-2) [facility]EN[facility] Results - Last 24 hrs: Microbiology 10/09/20 08:48 Aerobic Blood Culture - Preliminary Blood - Venous NO GROWTH AFTER 1 DAY Anaerobic Blood Culture - Preliminary NO GROWTH AFTER 1 DAY 10/09/20 08:40 Aerobic Blood Culture - Preliminary Blood - Venous - Lab Draw NO GROWTH AFTER 1 DAY Anaerobic Blood Culture - Preliminary NO GROWTH AFTER 1 DAY Med Orders - Current: Current Medications Acetaminophen (Tylenol) 650 mg PO Q4H PRN PRN Reason: Pain (Mild 1-3)/fever Acetaminophen (Tylenol) 650 mg RECTAL Q4H PRN PRN Reason: Pain (mild 1-3) Hydrocodone Bitart/Acetaminophen ([place] 325-5 Mg) 1 tab PO Q4H PRN PRN Reason: Pain (moderate 4-6) Albuterol/Ipratropium (Duoneb 3.0-0.5 Mg/3 Ml) 3 ml NEB Q4HRRT PRN PRN Reason: Shortness Of Breath/wheezing Baclofen (Lioresal) 10 mg PO TID [facility] Last Admin: 10/10/20 17:46 Dose: Not Given Documented by: Cholecalciferol (Vitamin D3) 5,000 unit PO DAILY [facility] Last Admin: 10/10/20 09:29 Dose: 5,000 unit Documented by: Dexamethasone (Decadron) 10 mg IVPUSH Q12HR [facility] Stop: 10/14/20 21:01 Last Admin: 10/10/20 09:26 Dose: 10 mg Documented by: Enoxaparin Sodium (Lovenox) 40 mg SUBCUT BID [facility] Last Admin: 10/10/20 09:30 Dose: 40 mg Documented by: Famotidine (Pepcid) 20 mg IVPUSH DAILY [facility] Last Admin: 10/10/20 09:28 Dose: 20 mg Documented by: Gabapentin (Neurontin) 1,200 mg PO BEDTIME [facility] Last Admin: 10/09/20 20:59 Dose: 1,200 mg Documented by: Gabapentin (Neurontin) 600 mg PO BID@0600,1300 [facility] Last Admin: 10/10/20 13:05 Dose: 600 mg Documented by: Haloperidol Lactate (Haldol) 5 mg IVPUSH Q8H PRN PRN Reason: Anxiety Last Admin: 10/10/20 15:25 Dose: 5 mg Documented by: Hydralazine HCl (Apresoline) 20 mg IVPUSH Q4H PRN PRN Reason: Hypertension Last Admin: 10/10/20 13:02 Dose: 20 mg Documented by: Hydromorphone HCl (Dilaudid) 0.5 mg IVPUSH Q2H PRN PRN Reason: Pain (severe 7-10) Last Admin: 10/10/20 14:18 Dose: 0.5 mg Documented by: Hydromorphone HCl (Dilaudid) 2 mg IVPUSH Q4H PRN PRN Reason: Pain Last Admin: 10/10/20 04:45 Dose: 2 mg Documented by: Azithromycin 500 mg/ Sodium (Chloride) 250 mls @ 250 mls/hr IV Q24H [facility] Last Admin: 10/10/20 04:31 Dose: 250 mls/hr Documented by: Promethazine HCl 12.5 mg/ (Sodium Chloride) 50.5 mls @ 100 mls/hr IV Q6H PRN PRN Reason: Nausea/Vomiting Remdesivir 100 mg/ Sodium (Chloride) 100 mls @ 100 mls/hr IV Q24H [facility] Stop: 10/13/20 09:59 Last Admin: 10/10/20 09:21 Dose: 100 mls/hr Documented by: Ceftriaxone Sodium 1 gm/ (Sodium Chloride) 100 mls @ 200 mls/hr IV Q24H [facility] Stop: 10/14/20 09:01 Last Admin: 10/10/20 09:23 Dose: 200 mls/hr Documented by: Sodium Chloride (Normal Saline) 1,000 mls @ 15 mls/hr IV ASDIRECTED [facility] Stop: 10/10/20 23:44 Last Infusion: 10/10/20 09:25 Dose: 15 mls/hr Documented by: Epinephrine HCl 1 mg/ Dextrose (/Water) 100 mls @ 63.14 mls/hr IV TITRATE [facility]; Protocol Ibuprofen (Motrin) 600 mg PO Q6H PRN PRN Reason: Pain (moderate 4-6) Insulin Glargine (Lantus) 20 unit SUBCUT BID@0600,1700 [facility] Insulin Human Lispro (Humalog) 0 unit SUBCUT Q6H [facility]; Protocol Ondansetron HCl (Zofran) 4 mg IV Q6H PRN PRN Reason: Nausea/Vomiting Oxycodone HCl (Oxycontin) 20 mg PO Q12HR PRN PRN Reason: Pain Last Admin: 10/09/20 12:07 Dose: 20 mg Documented by: Polyethylene Glycol (Miralax) 17 gm PO DAILY PRN PRN Reason: Constipation Ropinirole HCl (Requip) 1 mg PO BEDTIME [facility] Last Admin: 10/09/20 20:59 Dose: 1 mg Documented by: Senna/Docusate Sodium (Senna Plus) 1 tab PO BID PRN PRN Reason: Constipation Zinc Sulfate (Zincate) 220 mg PO DAILY [facility] Last Admin: 10/10/20 09:29 Dose: 220 mg Documented by: Discontinued Medications Atropine Sulfate (Atropine 0.1 Mg/Ml) Confirm Administered Dose 2 mg .ROUTE .STK-MED ONE Stop: 10/10/20 19:27 Dexamethasone (Decadron) 6 mg IVPUSH ONETIME ONE Stop: 10/09/20 02:53 Last Admin: 10/09/20 03:08 Dose: 6 mg Documented by: Epinephrine HCl (Epinephrine 1:10,000) Confirm Administered Dose 2 mg .ROUTE .STK-MED ONE Stop: 10/10/20 19:26 Epinephrine HCl (Epinephrine 1:10,000) Confirm Administered Dose 2 mg .ROUTE .STK-MED ONE Stop: 10/10/20 19:41 Famotidine (Pepcid) 20 mg IVPUSH BID [facility] Furosemide (Lasix) 20 mg IVPUSH NOW ONE Stop: 10/09/20 07:53 Last Admin: 10/09/20 07:42 Dose: 20 mg Documented by: Furosemide (Lasix) 20 mg IVPUSH NOW ONE Stop: 10/09/20 20:01 Furosemide (Lasix) 20 mg IVPUSH NOW ONE Stop: 10/09/20 21:01 Furosemide (Lasix) 20 mg IVPUSH ONETIME ONE Stop: 10/09/20 20:01 Last Admin: 10/09/20 19:12 Dose: 20 mg Documented by: Furosemide (Lasix) 20 mg IVPUSH NOW ONE Stop: 10/10/20 09:01 Last Admin: 10/10/20 09:24 Dose: 20 mg Documented by: Haloperidol Lactate (Haldol) 3 mg IVPUSH ONETIME ONE Stop: 10/09/20 07:43 Last Admin: 10/09/20 07:42 Dose: 3 mg Documented by: Haloperidol Lactate (Haldol) 3 mg IVPUSH Q6H PRN PRN Reason: Anxiety Haloperidol Lactate (Haldol) 2 mg IVPUSH ONETIME ONE Stop: 10/09/20 10:36 Last Admin: 10/09/20 10:54 Dose: 3 mg Documented by: Ceftriaxone Sodium 2 gm/ (Sodium Chloride) 100 mls @ 200 mls/hr IV ONETIME ONE Stop: 10/09/20 03:21 Last Admin: 10/09/20 03:10 Dose: 200 mls/hr Documented by: Remdesivir 200 mg/ Sodium (Chloride) 250 mls @ 250 mls/hr IV ONETIME ONE Stop: 10/09/20 05:15 Last Admin: 10/09/20 06:50 Dose: 250 mls/hr Documented by: Ceftriaxone Sodium 1 gm/ (Sodium Chloride) 100 mls @ 200 mls/hr IV Q24H [facility] Stop: 10/14/20 09:01 Propofol (Diprivan 100 Ml) Confirm Administered Dose 100 mls @ as directed .ROUTE .STK-MED ONE Stop: 10/10/20 19:09 Epinephrine HCl 1 mg/ Dextrose (/Water) 100 mls @ 63.14 mls/hr IV TITRATE [facility]; Protocol Dextrose/Water (Dextrose 5% In Water) Confirm Administered Dose 100 mls @ as directed .ROUTE .STK-MED ONE Stop: 10/10/20 19:34 Dextrose/Water (Dextrose 5% In Water) Confirm Administered Dose 100 mls @ as directed .ROUTE .STK-MED ONE Stop: 10/10/20 19:36 Insulin Glargine (Lantus) 15 unit SUBCUT BIDAC [facility] Insulin Glargine (Lantus) 15 unit SUBCUT BID@0600,1700 [facility] Last Admin: 10/10/20 06:44 Dose: 15 units Documented by: Insulin Human Lispro (Humalog) 0 unit SUBCUT TIDAC PRN; Protocol PRN Reason: Hyperglycemia Last Admin: 10/09/20 12:17 Dose: 6 units Documented by: Insulin Human Lispro (Humalog) 0 unit SUBCUT Q6H PRN; Protocol PRN Reason: Hyperglycemia Last Admin: 10/10/20 06:46 Dose: 6 units Documented by: Insulin Human Lispro (Humalog) 0 unit SUBCUT Q6H PRN; Protocol PRN Reason: Hyperglycemia Insulin Human Lispro (Humalog) 0 unit SUBCUT Q6H [facility]; Protocol Last Admin: 10/10/20 12:59 Dose: 15 units Documented by: Lidocaine (Aspercreme 4%) 1 each TOP DAILY [facility] Last Admin: 10/09/20 11:00 Dose: 1 each Documented by: Miscellaneous Information (Remove Patch) 1 ea TRDERM BEDTIME [facility] Last Admin: 10/09/20 12:08 Dose: 1 ea Documented by: - Exam Physical Findings Comments:: Patient . He is w/o heart sounds or peripheral pulses. No visible rise or fall of his chest.
== END 2020-10-10 19:50 | disposition home or self-care (01) | DRG 177 ==
LOC: JD.ED 00:50 → JD.ICU 03:12
PROVIDERS: ADMIT Internal Medicine; ATTEND Internal Medicine
PROC: XW033E5 Introduction of Remdesivir Anti-infective into Peripheral Vein, Percutaneous Approach, New Technology Group 5 (ICD-10-PCS; principal; 2020-10-09)
DX: U07.1 COVID-19 (principal); I46.9 Cardiac arrest, cause unspecified; R09.02 Hypoxemia; E86.0 Dehydration; J12.89 Other viral pneumonia; R79.82 Elevated C-reactive protein (CRP); N28.9 Disorder of kidney and ureter, unspecified; E11.51 Type 2 diabetes mellitus with diabetic peripheral angiopathy without gangrene; J80 Acute respiratory distress syndrome; D69.6 Thrombocytopenia, unspecified; E87.1 Hypo-osmolality and hyponatremia; N17.9 Acute kidney failure, unspecified; E87.2 Acidosis; I10 Essential (primary) hypertension; E78.5 Hyperlipidemia, unspecified; I25.10 Atherosclerotic heart disease of native coronary artery without angina pectoris; E11.21 Type 2 diabetes mellitus with diabetic nephropathy; I73.9 Peripheral vascular disease, unspecified; M54.9 Dorsalgia, unspecified; E78.00 Pure hypercholesterolemia, unspecified; E83.42 Hypomagnesemia; E66.9 Obesity, unspecified; E55.9 Vitamin D deficiency, unspecified; Z79.4 Long term (current) use of insulin; I25.2 Old myocardial infarction; Z95.1 Presence of aortocoronary bypass graft; Z88.2 Allergy status to sulfonamides; Z79.82 Long term (current) use of aspirin; Z79.899 Other long term (current) drug therapy; Z87.891 Personal history of nicotine dependence; F41.9 Anxiety disorder, unspecified; E11.621 Type 2 diabetes mellitus with foot ulcer; Z89.412 Acquired absence of left great toe
CPT/HCPCS: 36415; 36600; 71045; 80053; 82306; 82728; 82803; 83605; 83615; 83735; 83880; 84439; 84443; 84484; 85025; 85379; 86140; 93005; J0696; J1100; J7050; U0002; 51702; 80048; 80076; 80307; 82947; 82962; 85652; 87040; 94660; 97162-GP; 97597-GP; A9270-GY; J0171; J0360; J0456; J0461; J1170; J1630; J1650; J1815-GY; J1940; J3490; J7030; J7060